=== PATIENT | female | born 1955 | race Caucasian/White ===

== ENCOUNTER 2016-06-16 21:52 | Inpatient (IN) ==
[2016-06-16 23:11] LABS: Hematocrit 33.8 % (35.3-44.9); Hemoglobin 11.6 g/dL (11.5-15.4); Lymphocytes # 0.3 K/mcL (0.6-4.6); Mean Corpuscular HGB Conc 34.3 g/dL (31.6-35.5); Mean Corpuscular Volume 84.5 fL (83.0-100.0); Mean Platelet Volume 9.6 fL (9.4-12.4); Platelet Count 198 K/mcL (140-400); Red Cell Distribution Width 13.2 % (11.5-14.5)
[2016-06-16 23:16] LABS: INR 1.3; Prothrombin Time 13.7 Seconds (9.4-12.1)
[2016-06-16 23:19] LABS: Activated Partial Thrombo Time 28.8 Seconds (26.0-36.0)
[2016-06-16 23:28] LABS: Albumin 2.5 g/dL (3.5-5.0); Albumin/Globulin Ratio 0.6 (1.1-2.2); Bilirubin,Direct 0.7 mg/dL (0.0-0.5); Bilirubin,Indirect 0.5 mg/dL (0.0-1.2); Bilirubin,Total 1.2 mg/dL (0.2-1.2); Calcium 9.3 mg/dL (8.6-10.8); Globulin 4.4 g/dL (2.4-3.5); Potassium 3.9 mEq/L (3.5-4.5); Total Protein 6.9 g/dL (6.0-8.3)
[2016-06-16] MEDS: 0.9 % Sodium Chloride 1,000 ML IVC ONE (23:40)
[2016-06-16 23:48] LABS: Monocytes # 0.3 K/mcL (0.0-1.3); Neutrophils # 9.7 K/mcL (1.6-8.9)
[2016-06-16 23:49] LABS: Platelet Clumps Few (Not Present); Platelet Estimate Normal (Normal); Toxic Granulation Present (Not Present)
[2016-06-16 23:52] LABS: Bilirubin,Urine Negative (Negative); Blood,Urine Large (Negative); Clarity,Urine Turbid (Clear); Color,Urine Yellow (Yellow); Glucose,Urine (UA) 500 mg/dL (Normal); Ketones,Urine Trace mg/dL (Negative); Leukocyte Esterase,Urine Large (Negative); Nitrite,Urine Negative (Negative); PH,Urine 5.5 pH Units (5.0-8.0); Protein,Urine 100 mg/dL (Neg-Trace); Urobilinogen,Urine Normal (Normal)
[2016-06-16 23:53] LABS: Bacteria,Urine Many per hpf (None-Few); Hyaline Casts,Urine None Seen per lpf (None-Few); RBC,Urine 0-3 per hpf (0-3); Squamous Epithelial Cell,Urine Many per lpf (None-Few); WBC,Urine TNTC per hpf (0-3)
[2016-06-17 00:01] LABS: Amorphous Sediment,Urine Moderate (Few)
[2016-06-17 00:17] LABS: ABG Base Excess -3.7 mEq/L (-2.0 to 3.0); ABG HCO3 18.9 mEQ/L (21-27); ABG Oxygen Saturation 97 % (95-98); ABG PCO2 26 mmHg (35-45); ABG PH 7.47 pH Units (7.32-7.45); ABG PO2 88 mmHg (85-104); ABG TCO2 19.7 mEq/L (20-26)
[2016-06-17 00:19] LABS: Blood Gas FiO2 28 %
[2016-06-17] MEDS ORDERED: 0.9 % Sodium Chloride 500 ML IVC ONE (00:20)
[2016-06-17] MEDS ORDERED: Acetaminophen 650 MG RECTAL SUPP RC ONE (00:21)
--- NOTE | 2016-06-17 00:23 | Emergency Department Note ---
Disposition Clinical Impression: Urinary tract infection Disposition: Admitted As Inpatient Referrals: Bharti Jenkins MD [Primary Care Provider] - Forms: ED Satisfaction Letter Altered Mental Status HPI - General Chief Complaint: ED Altered Mental Status Stated Complaint: disoriented,can't walk vomiting Time Seen by Provider: 06/16/16 22:40 Source: family Limitations: no limitations Nursing Notes Reviewed: Yes Vital Signs Reviewed: Yes - History of Present Illness HPI Narrative: Patient presents verge problem with altered mental status. Per report of came home from work and found in the bathtub. He states she has been laying around for 2 days. States that he was gone to work came home she was in the bathtub. He states it was approximately in there for 4 hours. He states that she has been acting abnormal and different from her normal self. There is no report of shortness of breath no reported chest pain. Has been report of subjective fever at home. History of present illness is limited due to patient' s mental status. - Related Data Home Medications Medication Instructions Recorded Confirmed Anastrozole [Arimidex] 1 mg PO DAILY 06/17/16 06/17/16 GlyBURIDE [GlyBURIDE] 5 mg PO BID 06/17/16 06/17/16 Insulin Glargine,Hum.rec.anlog unit SQ 06/17/16 [Lantus Solostar] Levothyroxine [Synthroid] 25 mcg PO DAILY 06/17/16 06/17/16 Lisinopril [Zestril] 10 mg PO DAILY 06/17/16 06/17/16 Metformin HCl [Glucophage] 1,000 mg PO BID 06/17/16 06/17/16 Simvastatin [Zocor] 20 mg PO HS 06/17/16 06/17/16 Spironolactone [Aldactone] 25 mg PO DAILY 06/17/16 06/17/16 Venlafaxine HCl [Venlafaxine HCl 37.5 mg PO 06/17/16 ER] Victoza 2-Jacinto 06/17/16 Allergies Allergy/AdvReac Type Severity Reaction Status Date / Time No Known Allergies Allergy Verified 06/16/16 22:01 Limitations: ROS unobtainable due to patients medical condition Past Medical History - Past Medical History Source: obtained from family Medical history: Reports: diabetes, hyperlipidemia, hypertension, thyroid disease, other - Social History Smoking Status: Never smoker Alcohol use: Reports: none Drug use: Reports: none Physical Exam - General Limitations: altered mental status General appearance: lethargic - Head Head exam: atraumatic, normocephalic, normal inspection - Eye Eye exam: Present: normal appearance, PERRL, EOMI - ENT ENT exam: normal exam, normal oropharynx, mucous membranes moist - Neck Neck exam: Present: normal inspection, full ROM, trachea midline - Chest Chest inspection: Present: normal inspection, symmetric chest wall rise - Respiratory Respiratory exam: Present: normal lung sounds bilaterally - Cardiovascular Cardiovascular exam: Present: tachycardia - Abdominal Exam Abdominal exam: Present: soft, Non-Tender. Absent: tenderness, distention, guarding, rebound, rigidity - Extremities Exam Extremities exam: Present: normal inspection, full ROM. Absent: tenderness, pedal edema - Back Exam Back exam: Present: normal inspection, full ROM. Absent: tenderness - Neurological Exam Neurological exam: Present: alert, oriented X3 - Psychiatric Psychiatric exam: Present: normal affect, normal mood - Skin Skin exam: Present: warm, dry, intact, normal color Course Vital Signs Temperature 99.5 F 06/16/16 21:54 Pulse Rate 143 06/16/16 21:54 Respiratory Rate 36 06/16/16 21:54 Blood Pressure 125/68 06/16/16 21:54 O2 Sat by Pulse Oximetry 93 06/16/16 21:54 Temperature 102 F H 06/17/16 00:21 Pulse Rate 138 06/17/16 00:11 Respiratory Rate 34 06/17/16 00:11 Blood Pressure 103/81 06/17/16 00:11 O2 Sat by Pulse Oximetry 98 06/17/16 00:11 Oxygen Delivery Oxygen Delivery Nasal Cannula Altered Mental Status - [facility] Narrative Medical decision making narrative: Patient received IV fluids which improved her mental status. Patient was given a dose of Rocephin the contaminated urine and will be admitted to the hospitalist service for further care and workup. - Differential Diagnosis Likely: alcoholic intoxication, altered mental status, dementia, hypoglycemia, hyponatremia, sepsis - Lab Data Result diagrams: 06/16/16 22:56 06/16/16 22:56 Lab Results 06/16/16 06/16/16 06/16/16 Range/Units 22:10 22:56 22:56 WBC 10.3 (4.3-11.1) K/mcL RBC 4.00 (3.82-4.97) M/mcL Hgb 11.6 (11.5-15.4) g/dL Hct 33.8 L (35.3-44.9) % MCV 84.5 (83.0-100.0) fL MCH 29.0 (28.0-33.3) pg MCHC 34.3 (31.6-35.5) g/dL RDW 13.2 (11.5-14.5) % Plt Count 198 (140-400) K/mcL MPV 9.6 (9.4-12.4) fL Seg Neutrophils % 83.0 % Band Neutrophils % 11.0 H (0-4) % Lymphocytes % 3.0 % Monocytes % 3.0 % Neutrophils # 9.7 H (1.6-8.9) K/mcL Lymphocytes # 0.3 L (0.6-4.6) K/mcL Monocytes # 0.3 (0.0-1.3) K/mcL Toxic Granulation Present A (Not Present) Platelet Estimate Normal (Normal) Clumped Platelets Few A (Not Present) PT 13.7 H (9.4-12.1) Seconds INR 1.3 APTT 28.8 (26.0-36.0) Seconds ABG pH (7.32-7.45) pH Units ABG pCO2 (35-45) mmHg ABG pO2 (85-104) mmHg ABG HCO3 (21-27) mEQ/L ABG Total CO2 (20-26) mEq/L ABG O2 Saturation (95-98) % ABG Base Excess (-2.0 to 3.0) mEq/L Blood Gas Modality Inspired O2 % Sodium (136-145) mEq/L Potassium (3.5-4.5) mEq/L Chloride (98-109) mEq/L Carbon Dioxide (19-29) mEq/L BUN (7-20) mg/dL Creatinine (0.57-1.11) mg/dL Est GFR ( Amer) (> 60) Est GFR (Non-Af Amer) (> 60) BUN/Creatinine Ratio (6-26) Glucose (70-99) mg/dL POC Glucose 385 H (58-89) Calculated Osmolality (280-300) Lactic Acid (0.5-2.2) mmol/L Calcium (8.6-10.8) mg/dL Total Bilirubin (0.2-1.2) mg/dL Direct Bilirubin (0.0-0.5) mg/dL Indirect Bilirubin (0.0-1.2) mg/dL AST (5-34) Units/L ALT (0-55) Units/L Alkaline Phosphatase (38-126) Units/L Troponin I (0-0.03) ng/mL B-Natriuretic Peptide (0-100) pg/mL Serum Total Protein (6.0-8.3) g/dL Albumin (3.5-5.0) g/dL Globulin (2.4-3.5) g/dL Albumin/Globulin Ratio (1.1-2.2) TSH (0.350-4.840) mcIU/mL Urine Color (Yellow) Urine Clarity (Clear) Urine pH (5.0-8.0) pH Units Ur Specific [place] (1.010-1.025) Urine Protein (Neg-Trace) mg/dL Urine Glucose (UA) (Normal) mg/dL Urine Ketones (Negative) mg/dL Urine Blood (Negative) Urine Nitrite (Negative) Urine Bilirubin (Negative) Urine Urobilinogen (Normal) mg/dL Ur Leukocyte Esterase (Negative) Urine Microscopic RBC (0-3) per hpf Urine Microscopic WBC (0-3) per hpf Ur Squamous Epith Cells (None-Few) per lpf Amorphous Sediment (Few) Urine Bacteria (None-Few) per hpf Hyaline Casts (None-Few) per lpf Urine Yeast 06/16/16 06/16/16 06/16/16 Range/Units 22:56 22:56 22:56 WBC (4.3-11.1) K/mcL RBC (3.82-4.97) M/mcL Hgb (11.5-15.4) g/dL Hct (35.3-44.9) % MCV (83.0-100.0) fL MCH (28.0-33.3) pg MCHC (31.6-35.5) g/dL RDW (11.5-14.5) % Plt Count (140-400) K/mcL MPV (9.4-12.4) fL Seg Neutrophils % % Band Neutrophils % (0-4) % Lymphocytes % % Monocytes % % Neutrophils # (1.6-8.9) K/mcL Lymphocytes # (0.6-4.6) K/mcL Monocytes # (0.0-1.3) K/mcL Toxic Granulation (Not Present) Platelet Estimate (Normal) Clumped Platelets (Not Present) PT (9.4-12.1) Seconds INR APTT (26.0-36.0) Seconds ABG pH (7.32-7.45) pH Units ABG pCO2 (35-45) mmHg ABG pO2 (85-104) mmHg ABG HCO3 (21-27) mEQ/L ABG Total CO2 (20-26) mEq/L ABG O2 Saturation (95-98) % ABG Base Excess (-2.0 to 3.0) mEq/L Blood Gas Modality Inspired O2 % Sodium 127 L (136-145) mEq/L Potassium 3.9 (3.5-4.5) mEq/L Chloride 92 L (98-109) mEq/L Carbon Dioxide 17 L (19-29) mEq/L BUN 49 H (7-20) mg/dL Creatinine 2.88 H (0.57-1.11) mg/dL Est GFR ( Amer) 20 L (> 60) Est GFR (Non-Af Amer) 17 L (> 60) BUN/Creatinine Ratio 17 (6-26) Glucose 401 H (70-99) mg/dL POC Glucose (58-89) Calculated Osmolality 294 (280-300) Lactic Acid (0.5-2.2) mmol/L Calcium 9.3 (8.6-10.8) mg/dL Total Bilirubin 1.2 (0.2-1.2) mg/dL Direct Bilirubin 0.7 H (0.0-0.5) mg/dL Indirect Bilirubin 0.5 (0.0-1.2) mg/dL AST 25 (5-34) Units/L ALT 29 (0-55) Units/L Alkaline Phosphatase 259 H (38-126) Units/L Troponin I 0.04 H* (0-0.03) ng/mL B-Natriuretic Peptide 973 H (0-100) pg/mL Serum Total Protein 6.9 (6.0-8.3) g/dL Albumin 2.5 L (3.5-5.0) g/dL Globulin 4.4 H (2.4-3.5) g/dL Albumin/Globulin Ratio 0.6 L (1.1-2.2) TSH (0.350-4.840) mcIU/mL Urine Color (Yellow) Urine Clarity (Clear) Urine pH (5.0-8.0) pH Units Ur Specific [place] (1.010-1.025) Urine Protein (Neg-Trace) mg/dL Urine Glucose (UA) (Normal) mg/dL Urine Ketones (Negative) mg/dL Urine Blood (Negative) Urine Nitrite (Negative) Urine Bilirubin (Negative) Urine Urobilinogen (Normal) mg/dL Ur Leukocyte Esterase (Negative) Urine Microscopic RBC (0-3) per hpf Urine Microscopic WBC (0-3) per hpf Ur Squamous Epith Cells (None-Few) per lpf Amorphous Sediment (Few) Urine Bacteria (None-Few) per hpf Hyaline Casts (None-Few) per lpf Urine Yeast 06/16/16 06/16/16 06/16/16 Range/Units 22:56 22:56 23:43 WBC (4.3-11.1) K/mcL RBC (3.82-4.97) M/mcL Hgb (11.5-15.4) g/dL Hct (35.3-44.9) % MCV (83.0-100.0) fL MCH (28.0-33.3) pg MCHC (31.6-35.5) g/dL RDW (11.5-14.5) % Plt Count (140-400) K/mcL MPV (9.4-12.4) fL Seg Neutrophils % % Band Neutrophils % (0-4) % Lymphocytes % % Monocytes % % Neutrophils # (1.6-8.9) K/mcL Lymphocytes # (0.6-4.6) K/mcL Monocytes # (0.0-1.3) K/mcL Toxic Granulation (Not Present) Platelet Estimate (Normal) Clumped Platelets (Not Present) PT (9.4-12.1) Seconds INR APTT (26.0-36.0) Seconds ABG pH (7.32-7.45) pH Units ABG pCO2 (35-45) mmHg ABG pO2 (85-104) mmHg ABG HCO3 (21-27) mEQ/L ABG Total CO2 (20-26) mEq/L ABG O2 Saturation (95-98) % ABG Base Excess (-2.0 to 3.0) mEq/L Blood Gas Modality Inspired O2 % Sodium (136-145) mEq/L Potassium (3.5-4.5) mEq/L Chloride (98-109) mEq/L Carbon Dioxide (19-29) mEq/L BUN (7-20) mg/dL Creatinine (0.57-1.11) mg/dL Est GFR ( Amer) (> 60) Est GFR (Non-Af Amer) (> 60) BUN/Creatinine Ratio (6-26) Glucose (70-99) mg/dL POC Glucose (58-89) Calculated Osmolality (280-300) Lactic Acid 4.3 H* (0.5-2.2) mmol/L Calcium (8.6-10.8) mg/dL Total Bilirubin (0.2-1.2) mg/dL Direct Bilirubin (0.0-0.5) mg/dL Indirect Bilirubin (0.0-1.2) mg/dL AST (5-34) Units/L ALT (0-55) Units/L Alkaline Phosphatase (38-126) Units/L Troponin I (0-0.03) ng/mL B-Natriuretic Peptide (0-100) pg/mL Serum Total Protein (6.0-8.3) g/dL Albumin (3.5-5.0) g/dL Globulin (2.4-3.5) g/dL Albumin/Globulin Ratio (1.1-2.2) TSH 1.615 (0.350-4.840) mcIU/mL Urine Color Yellow (Yellow) Urine Clarity Turbid A (Clear) Urine pH 5.5 (5.0-8.0) pH Units Ur Specific [place] 1.020 (1.010-1.025) Urine Protein 100 H (Neg-Trace) mg/dL Urine Glucose (UA) 500 H (Normal) mg/dL Urine Ketones Trace H (Negative) mg/dL Urine Blood Large H (Negative) Urine Nitrite Negative (Negative) Urine Bilirubin Negative (Negative) Urine Urobilinogen Normal (Normal) mg/dL Ur Leukocyte Esterase Large H (Negative) Urine Microscopic RBC 0-3 (0-3) per hpf Urine Microscopic WBC TNTC H (0-3) per hpf Ur Squamous Epith Cells Many H (None-Few) per lpf Amorphous Sediment Moderate H (Few) Urine Bacteria Many H (None-Few) per hpf Hyaline Casts None Seen (None-Few) per lpf Urine Yeast Test Not Performed 06/17/16 Range/Units 00:08 WBC (4.3-11.1) K/mcL RBC (3.82-4.97) M/mcL Hgb (11.5-15.4) g/dL Hct (35.3-44.9) % MCV (83.0-100.0) fL MCH (28.0-33.3) pg MCHC (31.6-35.5) g/dL RDW (11.5-14.5) % Plt Count (140-400) K/mcL MPV (9.4-12.4) fL Seg Neutrophils % % Band Neutrophils % (0-4) % Lymphocytes % % Monocytes % % Neutrophils # (1.6-8.9) K/mcL Lymphocytes # (0.6-4.6) K/mcL Monocytes # (0.0-1.3) K/mcL Toxic Granulation (Not Present) Platelet Estimate (Normal) Clumped Platelets (Not Present) PT (9.4-12.1) Seconds INR APTT (26.0-36.0) Seconds ABG pH 7.47 H (7.32-7.45) pH Units ABG pCO2 26 L (35-45) mmHg ABG pO2 88 (85-104) mmHg ABG HCO3 18.9 L (21-27) mEQ/L ABG Total CO2 19.7 L (20-26) mEq/L ABG O2 Saturation 97 (95-98) % ABG Base Excess -3.7 L (-2.0 to 3.0) mEq/L Blood Gas Modality [place] Inspired O2 28 % Sodium (136-145) mEq/L Potassium (3.5-4.5) mEq/L Chloride (98-109) mEq/L Carbon Dioxide (19-29) mEq/L BUN (7-20) mg/dL Creatinine (0.57-1.11) mg/dL Est GFR ( Amer) (> 60) Est GFR (Non-Af Amer) (> 60) BUN/Creatinine Ratio (6-26) Glucose (70-99) mg/dL POC Glucose (58-89) Calculated Osmolality (280-300) Lactic Acid (0.5-2.2) mmol/L Calcium (8.6-10.8) mg/dL Total Bilirubin (0.2-1.2) mg/dL Direct Bilirubin (0.0-0.5) mg/dL Indirect Bilirubin (0.0-1.2) mg/dL AST (5-34) Units/L ALT (0-55) Units/L Alkaline Phosphatase (38-126) Units/L Troponin I (0-0.03) ng/mL B-Natriuretic Peptide (0-100) pg/mL Serum Total Protein (6.0-8.3) g/dL Albumin (3.5-5.0) g/dL Globulin (2.4-3.5) g/dL Albumin/Globulin Ratio (1.1-2.2) TSH (0.350-4.840) mcIU/mL Urine Color (Yellow) Urine Clarity (Clear) Urine pH (5.0-8.0) pH Units Ur Specific [place] (1.010-1.025) Urine Protein (Neg-Trace) mg/dL Urine Glucose (UA) (Normal) mg/dL Urine Ketones (Negative) mg/dL Urine Blood (Negative) Urine Nitrite (Negative) Urine Bilirubin (Negative) Urine Urobilinogen (Normal) mg/dL Ur Leukocyte Esterase (Negative) Urine Microscopic RBC (0-3) per hpf Urine Microscopic WBC (0-3) per hpf Ur Squamous Epith Cells (None-Few) per lpf Amorphous Sediment (Few) Urine Bacteria (None-Few) per hpf Hyaline Casts (None-Few) per lpf Urine Yeast - Radiology Data Radiology results reviewed: Yes I reviewed the patient's radiology results. Chest X-Ray 06/16/16 22:04 IMPRESSION: Cardiomegaly with early interstitial edema D/ / Emile Ross MD / Emile Ross MD Interpreting Provider: Emile Ross MD Head CT 06/16/16 22:46 IMPRESSION: Motion limited. No hemorrhage or mass. Trace fluid in the sphenoid D/ / Emile Malone MD / Emile Malone MD Interpreting Provider: Emile Malone MD - EKG Data EKG attestation: Yes I reviewed and interpreted this EKG. EKG shows normal: sinus rhythm Rate: tachycardia Rhythm: NSR TPA Checklist - LKW: 3-4.5 hrs Add. Contraindications Patient/family understanding: The patient/family members have been counseled and understood the risk, benefit , and alternatives of treatment. Critical Care Time Total Critical Care Time: 75 Attestation: Critical care performed: Time is exclusive of separately billable procedures. Time includes: direct patient care, patient reassessment, coordination of patient care, interpretation of data (laboratory data, radiology data, and respiratory data), review of patient's medical records, medical consultation and documentation of patient care. Procedures included in critical care time: Procedures excluded from critical care time:
[2016-06-17 01:11] LABS: Beta-Hydroxybutyric Acid 1.24 mmol/L (0.02-0.27)
[2016-06-17] MEDS ORDERED: 0.9 % Sodium Chloride 1,000 ML ONE ×4 (02:00→08:33)
[2016-06-17] MEDS ORDERED: Magnesium Sulfate 2 GM in D5% in Water 100 ML IVPB ONE ×2 (02:02→07:14)
[2016-06-17] MEDS ORDERED: 0.9 % Sodium Chloride 1,000 ML IVC ONE (02:02)
[2016-06-17] MEDS ORDERED: Naloxone 0.4 MG/ML INJ IVP PRN (02:11)
[2016-06-17] MEDS ORDERED: Acetaminophen 325 MG TABLET PO PRN (02:11)
[2016-06-17] MEDS ORDERED: *HR* Dextrose 50 % in Water (Syg) 50 ML SYRINGE IVP PRN (02:16)
[2016-06-17] MEDS ORDERED: D5% in Water 1,000 ML IVC PRN (02:16)
[2016-06-17] MEDS ORDERED: Dextrose Gel 15 GM PO PRN ×2 (02:16)
--- NOTE | 2016-06-17 02:22 | Internal Med History&Physical ---
Date of Encounter: 06/17/16 Time of Encounter: 02:04 Assessment and Plan (1) Severe sepsis Current visit: Yes Status: Acute patient comes in with signs and symptoms concerning for infectious process and found to meet SIRS criteria with a urinary source, she additionally has end organ damage-TISH and encephalopathy, she had lactate>4 we will employ the sepsis protocol with panculture, empiric IV Abx, IVF boluses to maintain MAP>65mmHg we will telemonitor will follow cultures and deescalate once culture and sensitivities are known, we will admit to a monitored bed (2) Acute encephalopathy Current visit: Yes Status: Acute patient comes in confused, in the setting of sepsis, we will admit for neuro checks whilst treating the underlying etiology, non contrast head CT was unremarkable (3) TISH (acute kidney injury) Current visit: Yes Status: Acute this is related to he sepsis, we will avoid nephrotoXins, give IVF, renally dose all medications and follow BMP (4) Hyponatremia Current visit: Yes Status: Acute from extreme dehydration from GI loss and poor oral intake, we will hydrate and follow BMP (5) Non-sustained ventricular tachycardia Current visit: Yes Status: Acute 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, this is related to electrolyte imbalance, at admission her magnesium was not checked, we will empirically replace and follow electrolytes, will continue telemonitoring (6) Urinary tract infection Current visit: Yes Status: Acute she has no LUTS but her urine is suggestive alongside systemic symptoms, we will manage per severe sepsis section Qualifiers: Urinary tract infection type: site unspecified Hematuria presence: with hematuria Qualified Code(s): N39.0 - Urinary tract infection, site not specified; R31.9 - Hematuria, unspecified (7) Hyperglycemia due to type 2 diabetes mellitus Current visit: Yes Status: Acute history of type 2 DM on oral hypoglycemics and sliding scale insulin at home, we will do basal bolus insulin regimen, we will hold her glyburide and metformin in the setting of TISH Qualifiers: 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 Lomax is a 61 year old female with a history of Type 2 DM was brought here to the ER of [place] for confusion. Per who provided the history, patient was well until 3 days prior to presentation when she began to have nausea and vomiting. She had several episodes since onset, the vomitus is greenish most of the time but sometimes contains food previously ingested. She has been unable to keep any food down. Over the course of the last 2 days she has been increasingly fatigued with generalized weakness. On the day of presentation she was not making sense to her during conversations. He left for work in the morning and came back to see her still lying in the bathtub. That was when he called [facility] and she was brought here. In the ER she was found to have UTI and met criteria for severe sepsis alongside significant electrolytes derangements. She reports palpitations and fever. Past Med Surg Social Fam HX - Past Medical History Medical history: diabetes, hyperlipidemia, hypertension, thyroid disease, other - Past Surgical History Surgical History: no surgical history - Social History Smoking Status: Never smoker Alcohol use: none Drug use: none Current living situation: Home - Independent, With Family Activity Level: Independent ambulation - Additional Family History Additional family history: both parents are , they had Type 2 DM Internal Medicine - H&P: Meds Anastrozole [Arimidex] 1 mg PO DAILY 06/17/16 [History] GlyBURIDE [GlyBURIDE] 5 mg PO BID 06/17/16 [History] Insulin Glargine,Hum.rec.anlog [Lantus Solostar] unit SQ 06/17/16 [History] Levothyroxine [Synthroid] 25 mcg PO DAILY 06/17/16 [History] Lisinopril [Zestril] 10 mg PO DAILY 06/17/16 [History] Metformin HCl [Glucophage] 1,000 mg PO BID 06/17/16 [History] Simvastatin [Zocor] 20 mg PO HS 06/17/16 [History] Spironolactone [Aldactone] 25 mg PO DAILY 06/17/16 [History] Venlafaxine HCl [Venlafaxine HCl ER] 37.5 mg PO 06/17/16 [History] Victoza 2-Jacinto 06/17/16 [History] Allergies No Known Allergies Allergy (Verified 06/16/16 22:01) All Systems PM: A 10-system review of systems was performed and is negative for pertinent findings except as documented above in the HPI. - Constitutional Vitals: Temp Pulse Resp BP Pulse Ox 102 F H 138 28 102/58 98 06/17/16 01:31 06/17/16 00:11 06/17/16 01:31 06/17/16 01:31 06/17/16 00:11 - General General appearance: Adult female, lying in bed, lethargic, able to follow commands, asking for water - Head Head exam: atraumatic, normocephalic, normal inspection - Eye Eye exam: Present: normal appearance, PERRL, EOMI - ENT ENT exam: poor dentition normal oropharynx, mucous membranes dry - Neck Neck exam: Present: normal inspection, full ROM, trachea midline - Respiratory Respiratory exam: normal lung sounds bilaterally, good AE, no crackles or wheeze - Cardiovascular Cardiovascular exam: tachycardic heart sounds, no murmurs, no ankle edema noted - Abdominal Exam Abdominal exam: Present: soft, Non-Tender. Absent: tenderness, distention, guarding, rebound, rigidity - Extremities Exam Extremities exam: Present: normal inspection, full ROM. Absent: tenderness, pedal edema - Back Exam Back exam: Present: normal inspection, full ROM. Absent: tenderness - Neurological Exam Neurological exam: Present: alert, oriented X2, grossly non focal motor and sensory exam - Psychiatric Psychiatric exam: Present: normal affect, normal mood - Skin Skin exam: warm, dry, intact, no rash or ulcers noted Internal Med - H&P Results - Labs CBC & Chem 7: 06/16/16 22:56 06/16/16 22:56 - Diagnostic Studies Chest x-ray Status: image reviewed by me CT scan - head Status: image reviewed by me
[2016-06-17] MEDS ORDERED: Insulin LISPRO 300 UNITS/3 ML VIAL SQ SCH ×2 (02:30)
[2016-06-17] MEDS ORDERED: methylPREDNISolone 125 MG/2 ML VIAL ONE (06:07)
[2016-06-17] MEDS ORDERED: Albuterol 2.5 MG/3 ML NEBULIZER IH PRN (06:08)
[2016-06-17] MEDS ORDERED: methylPREDNISolone 125 MG/2 ML VIAL IVP ONE (06:08)
--- NOTE | 2016-06-17 06:10 | Event Note ---
Date of Encounter: 06/17/16 Time of Encounter: 05:55 Patient admitted for severe sepsis with other multiple life threatening conditions was a rapid response this morning for respiratory distress. Upon limited exam pt had increased respirations in the 40's-50's. Had increased work of breathing with the use of accessory muscles of respiration, she was also wheezing but had no crackles. She was also tachycardic in the 150's and feverish in the 101's. We will manage her imminent respiratory failure with NIMV for now, will do bre and PRN nebs, will also give solumedrol, morphine for air hunger and anxiety, will check ABG. Low threshold for intubation and transfer to the ICU.
[2016-06-17] MEDS ORDERED: Acetaminophen 650 MG RECTAL SUPP RC PRN (06:12)
[2016-06-17] MEDS ORDERED: Levalbuterol Neb 1.25 MG/3 ML IH SCH (06:15)
[2016-06-17] MEDS: 0.9 % Sodium Chloride 1,000 ML IVC ONE (06:22)
[2016-06-17] MEDS ORDERED: *HR* Morphine 2 MG/ML SYRINGE ONE ×3 (06:25→07:18)
[2016-06-17 06:32] LABS: Mean Corpuscular HGB Conc 32.4 g/dL (31.6-35.5); Mean Corpuscular Hemoglobin 28.4 pg (28.0-33.3); Mean Corpuscular Volume 87.9 fL (83.0-100.0); Mean Platelet Volume 9.5 fL (9.4-12.4); Platelet Count 134 K/mcL (140-400); Red Blood Count 3.87 M/mcL (3.82-4.97); Red Cell Distribution Width 13.3 % (11.5-14.5)
[2016-06-17] MEDS ORDERED: *HR* Morphine 2 MG/ML SYRINGE IV ONE ×2 (06:33→07:16)
[2016-06-17 06:41] LABS: ABG Oxygen Saturation 98 % (95-98); ABG PCO2 26 mmHg (35-45); ABG PH 7.37 pH Units (7.32-7.45); ABG PO2 112 mmHg (85-104); ABG TCO2 15.8 mEq/L (20-26); Blood Gas FiO2 35 %
[2016-06-17 06:49] LABS: Calcium 8.2 mg/dL (8.6-10.8); Magnesium 1.6 mg/dL (1.6-2.6); Phosphorous 2.7 mg/dL (2.3-4.7)
[2016-06-17] MEDS: *HR* Morphine 2 MG/ML SYRINGE IV STA (06:51)
[2016-06-17] MEDS: 0.9 % Sodium Chloride 1,000 ML IVC SCH ×2 (07:54→10:14)
[2016-06-17] MEDS: Ipratropium Neb 0.5 MG NEBULIZER IH SCH ×4 (07:55→19:58)
[2016-06-17] MEDS ORDERED: Albuterol 2.5 MG/3 ML NEBULIZER IH SCH (08:00)
[2016-06-17] MEDS ORDERED: Vancomycin 1,750 MG in D5% in Water 500 ML IVPB ONE (08:00)
[2016-06-17] MEDS ORDERED: Vancomycin 1 EACH in D5% in Water 250 ML IVPB PRN (08:00)
[2016-06-17 08:03] LABS: Lymphocytes # 1.1 K/mcL (0.6-4.6); Monocytes # 0.4 K/mcL (0.0-1.3); Neutrophils # 4.4 K/mcL (1.6-8.9); Platelet Estimate Slight Decrease (Normal)
[2016-06-17 08:27] LABS: Acinetobacter baumannii by PCR Not Detected (Not Detect); Candida albicans by PCR Not Detected (Not Detect); Candida glabrata by PCR Not Detected (Not Detect); Candida krusei by PCR Not Detected (Not Detect); Candida parapsilosis by PCR Not Detected (Not Detect); Candida tropicalis by PCR Not Detected (Not Detect); Enterococcus by PCR Not Detected (Not Detect); Escherichia coli by PCR ***DETECTED*** (Not Detect); Klebsiella oxytoca by PCR Not Detected (Not Detect); Klebsiella pneumoniae by PCR Not Detected (Not Detect); Pseudomonas aeruginosa by PCR Not Detected (Not Detect); Serratia marcescens by PCR Not Detected (Not Detect); Staphylococcus aureus by PCR Not Detected (Not Detect); Streptococcus agalactiae(B)PCR Not Detected (Not Detect); Streptococcus by PCR Not Detected (Not Detect); Streptococcus pneumoniae PCR Not Detected (Not Detect); Streptococcus pyogenes (A) PCR Not Detected (Not Detect); blaKPC Carbapenem-Resist Gene Not Detected (Not Detect)
[2016-06-17] MEDS ORDERED: Sodium Bicarbonate 100 MEQ in 0.45 % Sodium Chloride 1,000 ML IVC SCH (08:45)
[2016-06-17] MEDS ORDERED: Amiodarone 150 MG in D5% in Water 100 ML IVPB ONE (09:32)
--- NOTE | 2016-06-17 09:46 | Pulmonology Consult Note ---
Date of Encounter: 06/17/16 Time of Encounter: 09:44 Assessment and Plan (1) Severe sepsis Current Visit: Yes Status: Acute Meets criteria with hypotension, end organ damage of TISH and acute encephalopathy. Tachycardia and tachypnea as well. Lactic acid 4.3>3.8 5L fluid given Blood cultures demonstrate bacteremia with E. Coli and Enterobacteriac. Continue Zosyn Day #1 Plan to deescalate pending cultures. Vancomycin has been discontinued. (2) Bacteremia due to Gram-negative bacteria Current Visit: Yes Status: Acute On Zosyn (3) Acute encephalopathy Current Visit: Yes Status: Acute Secondary to severe sepsis. (4) Atrial fibrillation with RVR Current Visit: Yes Status: Acute Currently on Amiodarone protocol. Rate continues to be elevated from 140-160 at this time. Blood pressures stable. No longer having runs of wide complex tachycardia. Continue to monitor closely. EKG ordered. Echocardiogram ordered. (5) Diabetes Current Visit: Yes Status: Acute On diabetic diet. Moderate dose SSI. Qualifiers: Diabetes mellitus type: type 2 Diabetes mellitus complication status: without complication Diabetes mellitus intermediate insulin use: without meterman use Qualified Code(s): E11.9 - Type 2 diabetes mellitus without complications (6) TISH (acute kidney injury) Current Visit: Yes Status: Acute 2.88>2.4 Likely hemodynamically mediated secondary to severe sepsis. Improving, continue to monitor. (7) Hyponatremia Current Visit: Yes Status: Acute 127>132 Additional saline has been given since last lab draw, continue to monitor. (8) Urinary tract infection Current Visit: Yes Status: Acute On Zosyn. Urine culture pending. Qualifiers: Urinary tract infection type: site unspecified Hematuria presence: with hematuria Qualified Code(s): N39.0 - Urinary tract infection, site not specified; R31.9 - Hematuria, unspecified (9) Hypothyroidism Current Visit: Yes Status: Chronic Continue home medication. Qualifiers: Hypothyroidism type: acquired Qualified Code(s): E03.9 - Hypothyroidism, unspecified (10) DVT prophylaxis Current Visit: Yes Status: Acute Heparin SQ History of Present Illness Consult date: 06/17/16 Requesting physician: Marybel Senior Reason for consult: other (severe sepsis, arrhthymia, acute respiratory failure) Chief complaint: Confusion History of present illness: This is a 61 year old female with PMH of type 2 diabetes, hypertension, hyperlipidemia, morbid obesity who was admitted for altered mental status secondary to severe sepsis with a urinary source. Much of the history is reviewed with the who states that his started vomiting three days ago and was unable to keep anything down. There was a combination of vomiting food as well as greenish liquid. She did not have any blood in her vomit. She denies having diarrhea. The states that he noticed his becoming weaker over the three day period until yesterday when she got in the tub before he left for work and she was still in the tub 8 hours later when he returned. At that point he called EMS. Upon arrival to the ER she was incoherent and unable to state her name. Shortly after admission she became tachycardic with a wide complex tachycardia and rates up to 211. She was fluid resuscitated with 5 L, given three amps of bicarb and started on a bicarb drip for severe sepsis with acidosis. He lactic acid was 5.2. She responded to fluids and was transferred to the ICU on vancomycin and zosyn. She had two separate positive blood cultures reported for two gram negative organisms. Currently she is on BiPAP and continues to have runs of wide complex tachycardia with rates into the 190s. She is able to respond to commands appropriately and is asking for a break from the BiPAP as well as a drink of water. She denies any previous cardiac history. The states that she typically has a high heart rate at home in the 130s. Past Med Surg Social Fam HX - Past Medical History Medical history: diabetes, hyperlipidemia, hypertension, thyroid disease, other - Past Surgical History Surgical History: no surgical history - Social History Smoking Status: Never smoker Alcohol use: none Drug use: none - Family History Mother Hx Family Cardiac Disorders: Yes Hx Family Endocrine Disorder: Yes (diabetes) Father Hx Family Endocrine Disorder: Yes (diabetes) Sister Hx Family Endocrine Disorder: Yes (diabetes) Medications and Allergies Anastrozole [Arimidex] 1 mg PO DAILY 06/17/16 [History] GlyBURIDE [GlyBURIDE] 5 mg PO BID 06/17/16 [History] Insulin Glargine,Hum.rec.anlog [Lantus Solostar] 35 unit SQ QAM 06/17/16 [ History] Insulin Glargine,Hum.rec.anlog [Lantus Solostar] 40 unit SQ QPM 06/17/16 [ History] Levothyroxine [Synthroid] 25 mcg PO DAILY 06/17/16 [History] Liraglutide [Victoza 2-Jacinto] 0.6 mg SQ DAILY 06/17/16 [History] Lisinopril [Zestril] 10 mg PO DAILY 06/17/16 [History] Metformin HCl [Glucophage] 1,000 mg PO BID 06/17/16 [History] Simvastatin [Zocor] 20 mg PO HS 06/17/16 [History] Spironolactone [Aldactone] 25 mg PO DAILY 06/17/16 [History] Venlafaxine HCl [Venlafaxine HCl ER] 150 mg PO DAILY 06/17/16 [History] Allergies No Known Allergies Allergy (Verified 06/16/16 22:01) All Systems: A 10-system review of systems was performed and is negative for pertinent findings except as documented above in the HPI. - EENT Nose, mouth and throat: dry mouth - Cardiovascular Cardiovascular: palpitations - Respiratory Respiratory: dyspnea - Gastrointestinal Gastrointestinal: nausea, vomiting - Genitourinary Genitourinary: no dysuria, no flank pain, no urinary frequency, no urinary incontinence - Neurological Neurological: confusion Physical Examination Vital Signs: Vital Signs, Last 4 Hours Temp Pulse Resp BP Pulse Ox 06/17/16 09:24 181 31 98/76 97 06/17/16 07:52 97.7 F 131 32 96/58 96 06/17/16 06:34 145 37 124/59 99 06/17/16 06:27 38 100 06/17/16 06:18 40 99 General appearance: appears uncomfortable, other (mild distress) Eyes: nonicteric ENT: oropharynx dry Neck: supple Effort: mildly labored, other (Tachypnea on BiPAP) Auscultation: bilateral: clear Cardiovascular: irregular rhythm (Rapid rate) Gastrointestinal: normoactive bowel sounds, soft, non-tender, other (obese) Integumentary: normal Extremities: no cyanosis Musculoskeletal: no deformities normal mental status, non-focal exam mood appropriate Results - Laboratory Findings CBC and BMP: 06/17/16 06:16 06/17/16 06:16 ABG ABG pH 7.37 pH Units (7.32-7.45) 06/17/16 06:25 ABG pCO2 26 mmHg (35-45) L 06/17/16 06:25 ABG pO2 112 mmHg (85-104) H 06/17/16 06:25 ABG O2 Saturation 98 % (95-98) 06/17/16 06:25 PT/INR, D-dimer PT 13.7 Seconds (9.4-12.1) H 06/16/16 22:56 Abnormal lab findings: Abnormal lab results Hgb 11.0 g/dL (11.5-15.4) L 06/17/16 06:16 Hct 34.0 % (35.3-44.9) L 06/17/16 06:16 Plt Count 134 K/mcL (140-400) L 06/17/16 06:16 Band Neutrophils % 10.0 % (0-4) H 06/17/16 06:16 Metamyelocytes % 4.0 % (0) H 06/17/16 06:16 Toxic Granulation Present (Not Present) A 06/16/16 22:56 Platelet Estimate Slight Decrease (Normal) L 06/17/16 06:16 Clumped Platelets Few (Not Present) A 06/16/16 22:56 PT 13.7 Seconds (9.4-12.1) H 06/16/16 22:56 ABG pCO2 26 mmHg (35-45) L 06/17/16 06:25 ABG pO2 112 mmHg (85-104) H 06/17/16 06:25 ABG HCO3 15.0 mEQ/L (21-27) L 06/17/16 06:25 ABG Total CO2 15.8 mEq/L (20-26) L 06/17/16 06:25 ABG Base Excess -9.0 mEq/L (-2.0 to 3.0) L 06/17/16 06:25 Sodium 132 mEq/L (136-145) L 06/17/16 06:16 Carbon Dioxide 14 mEq/L (19-29) L 06/17/16 06:16 BUN 46 mg/dL (7-20) H 06/17/16 06:16 Creatinine 2.40 mg/dL (0.57-1.11) H 06/17/16 06:16 Est GFR ( Amer) 25 (> 60) L 06/17/16 06:16 Est GFR (Non-Af Amer) 21 (> 60) L 06/17/16 06:16 Glucose 291 mg/dL (70-99) H 06/17/16 06:16 POC Glucose 278 (58-89) H 06/17/16 09:09 Lactic Acid 5.2 mmol/L (0.5-2.2) H* 06/17/16 06:16 Calcium 8.2 mg/dL (8.6-10.8) L 06/17/16 06:16 Direct Bilirubin 0.7 mg/dL (0.0-0.5) H 06/16/16 22:56 Alkaline Phosphatase 259 Units/L (38-126) H 06/16/16 22:56 Troponin I 0.04 ng/mL (0-0.03) H* 06/16/16 22:56 B-Natriuretic Peptide 973 pg/mL (0-100) H 06/16/16 22:56 Albumin 2.5 g/dL (3.5-5.0) L 06/16/16 22:56 Globulin 4.4 g/dL (2.4-3.5) H 06/16/16 22:56 Albumin/Globulin Ratio 0.6 (1.1-2.2) L 06/16/16 22:56 Beta-Hydroxybutyric Acd 1.24 mmol/L (0.02-0.27) H 06/17/16 01:19 Urine Clarity Turbid (Clear) A 06/16/16 23:43 Urine Protein 100 mg/dL (Neg-Trace) H 06/16/16 23:43 Urine Glucose (UA) 500 mg/dL (Normal) H 06/16/16 23:43 Urine Ketones Trace mg/dL (Negative) H 06/16/16 23:43 Urine Blood Large (Negative) H 06/16/16 23:43 Ur Leukocyte Esterase Large (Negative) H 06/16/16 23:43 Urine Microscopic WBC TNTC per hpf (0-3) H 06/16/16 23:43 Ur Squamous Epith Cells Many per lpf (None-Few) H 06/16/16 23:43 Amorphous Sediment Moderate (Few) H 06/16/16 23:43 Urine Bacteria Many per hpf (None-Few) H 06/16/16 23:43 Enterobacteriac sp PCR DETECTED (Not Detect) A 06/16/16 23:01 E. coli (PCR) DETECTED (Not Detect) A 06/16/16 23:01 Consult Discharge Plan - Plan Referrals: Bharti Jenkins MD [Primary Care Provider] - (Web requested 06-17-16) - Attending Attestation I examined this patient and my medical decision-making was reviewed with the HISTORICAL RECORDS ADMINISTRATOR/PA/Advanced Practice Nurse/Resident Physician. I agree with the documented findings, disposition and treatment plan as described except to the extent set forth below.
[2016-06-17] MEDS ORDERED: Amiodarone Premix 360 MG/200 ML BAG IVC ONE ×2 (09:53→15:49)
[2016-06-17] MEDS ORDERED: Amiodarone Premix 150 MG/100 ML BAG IVPB ONE ×2 (09:53→11:51)
--- NOTE | 2016-06-17 09:53 | Event Note ---
Date of Encounter: 06/17/16 Time of Encounter: 07:20 Patient is a 61-year-old female with medical history of type 2 diabetes, hypertension, hyperlipidemia, morbid obesity who was admitted for acute metabolic encephalopathy secondary to severe sepsis, severe sepsis secondary to urinary tract infection and gram-negative bacteremia, Non sustained Vtach, and electrolyte abnormalities. She was empirically started on IV Fluids, IV abx, and Mg was supplemented. Earlier this morning patient was noted to be hypoxic for which she was placed on NPPV. Her hypoxia resolved however she remained tachypneic with RR fluctuating between 30-40. She was also noted to remain in sinus tachycardia with HR in 130s. During my evaluation, she was found to have sustained narrow complex Vtach with hypotension. She received 1L NS fluid bolus with improvement in her BP and resolution of her Vtach. She has received 4gm of IV Mg. Noted to have AGMA in the setting of acute renal failure. Bicarb deficit was noted to be 9.7 amp. She has received 3amps of IV bicarb and is to be started on Bicarb gtt (2amp bicarb in 0.45NS run at 125cc/hr). Blood cultures positive of E.coli and is started on empiric IV abx (Vancomycin and Zosyn). Urine cultures pending. Concern for aspiration as patient has reported history of multiple episodes of vomiting with altered mentation prior to her arrival to the hospital. Noted to have hyperglycemia for which she is placed on insulin sliding scale algorithm. Given patient's labile clinical status and severe critical illness, ICU was consulted. Case was discussed with Dr. Luna. I performed critical intervention, involving high complexity decision making to assess, manipulate, and support vital organ system failure; and I spent about 1 hour engaged in work directly related to the patient's care at her immediate bedside and also on the unit. Patient is to be transferred to the ICU under the care of the haul driver.
[2016-06-17] MEDS: *HR* Heparin 5,000 UNIT/ML VIAL SQ SCH ×2 (09:57→16:04)
[2016-06-17] MEDS: Piperacillin/Tazobactam 3.375 GM in D5% in Water (Mini-Bag+) 100 ML IVPB SCH ×2 (10:13→16:05)
[2016-06-17] MEDS: Insulin LISPRO 300 UNITS/3 ML VIAL SQ SCH ×2 (10:23→16:21)
[2016-06-17] MEDS: Anastrozole 1 MG TABLET PO SCH (11:27)
[2016-06-17] MEDS: Levothyroxine 25 MCG TABLET PO SCH (11:27)
[2016-06-17] MEDS ORDERED: Insulin LISPRO 300 UNITS/3 ML VIAL SQ ONE (11:30)
[2016-06-17 11:32] LABS: Calcium 7.6 mg/dL (8.6-10.8); Magnesium 2.7 mg/dL (1.6-2.6); Phosphorous 2.2 mg/dL (2.3-4.7); Potassium 3.9 mEq/L (3.5-4.5)
[2016-06-17 11:39] LABS: Hemoglobin A1C 9.9 %
--- NOTE | 2016-06-17 11:39 | Electrocardiograph Report ---
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
[2016-06-17] MEDS: Levalbuterol Neb 1.25 MG/3 ML IH SCH ×3 (11:45→19:58)
[2016-06-17] MEDS: Amiodarone Premix 360 MG/200 ML BAG IVC SCH (17:28)
[2016-06-17] MEDS: Insulin Human Regular 100 UNIT in 0.9 % Sodium Chloride 100 ML IVC SCH ×2 (17:29→22:41)
[2016-06-17] MEDS ORDERED: Amiodarone Premix 360 MG/200 ML BAG IVC SCH (18:00)
--- NOTE | 2016-06-17 19:47 | Electrocardiograph Report ---
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
[2016-06-17] MEDS ORDERED: *HR* Metoprolol 5 MG/5 ML VIAL IVP PRN (20:02)
[2016-06-17] MEDS ORDERED: Potassium Phosphate 44 MEQ in 0.9 % Sodium Chloride 250 ML IVPB PRN (20:06)
[2016-06-17] MEDS ORDERED: Calcium Gluconate 1,000 MG in D5% in Water 100 ML IVPB PRN (20:06)
[2016-06-17] MEDS ORDERED: Sodium Phosphate 30 MMOL in D5% in Water 100 ML IVPB PRN (20:06)
[2016-06-17] MEDS ORDERED: Magnesium Sulfate 2 GM in D5% in Water 100 ML IVPB PRN (20:06)
[2016-06-17 21:00] LABS: Hematocrit 31.5 % (35.3-44.9); Hemoglobin 10.3 g/dL (11.5-15.4); Immature Platelets 7.4 % (1.1-6.1); Mean Corpuscular HGB Conc 32.7 g/dL (31.6-35.5); Mean Corpuscular Hemoglobin 28.5 pg (28.0-33.3); Mean Platelet Volume 10.8 fL (9.4-12.4); Red Blood Count 3.62 M/mcL (3.82-4.97); Red Cell Distribution Width 13.7 % (11.5-14.5)
[2016-06-17] MEDS ORDERED: Insulin DETEMIR 100 UNIT/ML X5UNITS SQ SCH (21:00)
[2016-06-17 21:12] LABS: Calcium 7.8 mg/dL (8.6-10.8); Potassium 3.8 mEq/L (3.5-4.5)
[2016-06-17 21:22] LABS: Platelet Count 90 K/mcL (140-400)
[2016-06-17 21:28] LABS: Lymphocytes # 1.4 K/mcL (0.6-4.6); Monocytes # 0.3 K/mcL (0.0-1.3); Neutrophils # 14.6 K/mcL (1.6-8.9); Toxic Granulation Present (Not Present)
[2016-06-17 21:32] LABS: Burr Cells 1+ (Not Present)
[2016-06-17 21:35] LABS: Platelet Estimate Decreased (Normal)
[2016-06-17] MEDS ORDERED: *HR* LORazepam 2 MG/ML VIAL IVP ONE (22:45)
[2016-06-18] MEDS: Levalbuterol Neb 1.25 MG/3 ML IH SCH ×6 (00:03→19:37)
[2016-06-18] MEDS: Ipratropium Neb 0.5 MG NEBULIZER IH SCH ×6 (00:03→19:37)
[2016-06-18] MEDS: Piperacillin/Tazobactam 3.375 GM in D5% in Water (Mini-Bag+) 100 ML IVPB SCH ×4 (00:15→23:13)
[2016-06-18] MEDS: *HR* Heparin 5,000 UNIT/ML VIAL SQ SCH ×4 (00:16→23:13)
[2016-06-18] MEDS ORDERED: *HR* LORazepam 2 MG/ML VIAL IVP PRN (00:41)
[2016-06-18] MEDS ORDERED: 0.9 % Sodium Chloride 1,000 ML ONE (01:07)
[2016-06-18] MEDS ORDERED: 0.9 % Sodium Chloride 1,000 ML IVC ONE (01:15)
[2016-06-18 01:19] LABS: ABG HCO3 10.1 mEQ/L (21-27); ABG Oxygen Saturation 99 % (95-98); ABG PCO2 22 mmHg (35-45); ABG PH 7.27 pH Units (7.32-7.45); ABG PO2 131 mmHg (85-104); ABG TCO2 10.8 mEq/L (20-26)
[2016-06-18 01:21] LABS: Blood Gas FiO2 35 %
[2016-06-18] MEDS: Sodium Bicarbonate 100 MEQ in 0.45 % Sodium Chloride 1,000 ML IVC SCH ×2 (01:29→08:38)
[2016-06-18] MEDS: Norepinephrine 4 MG in D5% in Water 250 ML IVC SCH ×6 (01:37→18:23)
[2016-06-18] MEDS ORDERED: *HR* FentaNYL (PF) 100 MCG/2 ML VIAL ONE (01:49)
[2016-06-18] MEDS ORDERED: Lacri-Lube 3.5 GM TUBE BOTH EYES PRN (02:06)
[2016-06-18] MEDS ORDERED: 0.9 % Sodium Chloride 500 ML ONE (02:15)
[2016-06-18] MEDS: FentaNYL (PF) 1,000 MCG in 0.9 % Sodium Chloride 80 ML IVC SCH ×3 (02:48→22:14)
--- NOTE | 2016-06-18 02:57 | Event Note ---
Date of Encounter: 06/18/16 Time of Encounter: 00:55 RAPID RESPONSE DX=Severe sepsis w/ multi-organ failure Severe lactic/metabolic acidosis Septic-hypovolemic (likely, combined cardiogenic) shock Acute toxic-metabolic encephalopathy-delirium Acute respiratory failure r/o pulm edema r/o PNA r/o ARDS Sepsis associated disseminated intravascular coagulation Stage IV TISH/CKD w/ anasarca Adynamic ileus r/o SBO r/o bowel ischemia Pyelonephritis/polymicrobial UTI Vtzvuwqogcwk-parebfjinj-dyhujxdkmucoe state r/o DKA Atrial Fibrillation Rvr Demand Ischemia associated severe V/Q mismatch Condition serious ---->Critical Prognosis guarded---->Poor Code status----> FULL TX=Bipap---->Intubation/mechanical ventilation IV Levophed drip IV albumin IV sodium bicarbonate drip IV amiodarone IV fentanyl+versed sedation---->IV propyfol (when hemodynamics permit) Stat: comprehensive labs/studies pending Stat: CXR+KUB Plan of care, findings, condition, goals, etc discussed w/ at bedside. All questions addressed. Consultation=Fire Boss/CCM/pulmonary (consider=Nephrology; Cardiology) Orders written... Vital Signs Temp Pulse Resp BP Pulse Ox 06/18/16 00:05 25 100 06/18/16 00:00 100 34 95/64 96 06/17/16 23:17 121 24 107/67 98 06/17/16 22:00 121 26 82/69 99 06/17/16 21:00 126 28 89/70 94 06/17/16 20:22 143 28 92/60 99 06/17/16 19:38 97.4 F L 131 28 111/90 95 06/17/16 18:30 136 28 100/53 95 06/17/16 17:00 96.4 F L 138 22 98/35 94 06/17/16 16:59 96.4 F L 06/17/16 16:00 128 16 93/74 95 06/17/16 15:00 132 18 91/68 95 06/17/16 14:00 147 18 113/47 95 06/17/16 13:00 128 20 108/53 95 06/17/16 12:00 153 24 93/67 94 06/17/16 11:40 96.4 F L 06/17/16 11:00 160 22 98/70 97 06/17/16 10:00 176 35 130/59 97 06/17/16 09:25 181 06/17/16 09:24 181 31 98/76 97 06/17/16 07:52 97.7 F 131 32 96/58 96 06/17/16 06:34 145 37 124/59 99 06/17/16 06:27 38 100 06/17/16 06:18 40 99 06/17/16 05:52 101.4 F H 149 42 139/84 95 06/17/16 04:05 100.3 F H 122 20 122/74 94 Intake and Output 06/17/16 06/17/16 06/18/16 15:59 23:59 07:59 Intake Total 2221 / 2221 906.0 / 906.0 151.5 / 151.5 Output Total 300 / 300 375 / 375 Balance 1921 / 1921 531.0 / 531.0 151.5 / 151.5 Intake: IV Fluids 2171 / 2171 306.0 / 306.0 151.5 / 151.5 0.9 % Sodium Chloride 1, 1100 / 1100 000 ML @ 125 mls/hr IVC . Q8H [facility] Rx#:[id number] Amiodarone 360mg/200mL 67 / 67 Drip Premix 360 mg In 200 ml @ 1 MG/MIN 33.333 mls /hr IVC ONCE ONE Rx#: [id number] HumuLIN R 100 UNIT In 0. 106.0 / 106.0 51.5 / 51.5 9 % Sodium Chloride 100 ML @ 12.5 UNIT/HR 12.62 mls/hr IVC CONT [facility] Rx#: [id number] Sodium Bicarbonate 100 100 / 100 MEQ In 0.45% Sodium Chloride 1000 Ml 1000 Ml 1,000 ML @ 125 mls/hr IVC .[id number] [facility] Rx#: [id number] Amiodarone 150mg/100mL 200 / 200 Premix 150 mg In 100 ml @ 300 mls/hr IVPB ONCE ONE Rx#:[id number] Magnesium Sulfate 2 GM In 104 / 104 Dextrose 5% 100 ML @ 100 mls/hr IVPB ONCE ONE Rx# :[id number] Zosyn 3.375 GM In 100 / 100 100 / 100 Dextrose 5% (Minibag+) 100 ML 100 ML @ 25 mls/hr IVPB Q8HR [facility] Rx#: [id number] Potassium Chloride 10 mEq 100 / 100 100 / 100 /100mL 10 meq In 100 ml @ 100 mls/hr IVPB Q1H PRN Rx#:[id number] Vancocin 1,750 MG In 500 / 500 Dextrose 5% 500 ML @ 333. 34 mls/hr IVPB ONCE ONE Rx#:[id number] Oral 50 / 50 600 / 600 Output: Catheter 300 / 300 375 / 375 Other: # Bowel Movements 0 Weight 122 kg Blood Glucose* 405 299 145 Short CBC 06/17/16 06/17/16 Range/Units 20:27 06:16 WBC 17.0 H D 6.1 (4.3-11.1) K/mcL Hgb 10.3 L 11.0 L (11.5-15.4) g/dL Hct 31.5 L 34.0 L (35.3-44.9) % Plt Count 90 L 134 L (140-400) K/mcL Neutrophils # 14.6 H 4.4 (1.6-8.9) K/mcL BMP 06/17/16 06/17/16 06/17/16 Range/Units 20:27 10:04 06:16 Sodium 130 L 135 L 132 L (136-145) mEq/L Potassium 3.8 3.9 4.0 (3.5-4.5) mEq/L Chloride 100 104 101 (98-109) mEq/L Carbon Dioxide 13 L 16 L 14 L (19-29) mEq/L BUN 52 H 43 H 46 H (7-20) mg/dL Creatinine 2.44 H 2.20 H 2.40 H (0.57-1.11) mg/dL Glucose 423 H 337 H 291 H (70-99) mg/dL Calcium 7.8 L 7.6 L 8.2 L (8.6-10.8) mg/dL Cardiac Enzymes 06/17/16 Range/Units 20:27 Troponin I 0.03 (0-0.03) ng/mL Abnormal lab results WBC 17.0 K/mcL (4.3-11.1) H D 06/17/16 20:27 RBC 3.62 M/mcL (3.82-4.97) L 06/17/16 20:27 Hgb 10.3 g/dL (11.5-15.4) L 06/17/16 20:27 Hct 31.5 % (35.3-44.9) L 06/17/16 20:27 Plt Count 90 K/mcL (140-400) L 06/17/16 20:27 Band Neutrophils % 12.0 % (0-4) H 06/17/16 20:27 Metamyelocytes % 4.0 % (0) H 06/17/16 20:27 Neutrophils # 14.6 K/mcL (1.6-8.9) H 06/17/16 20:27 Toxic Granulation Present (Not Present) A 06/17/16 20:27 Platelet Estimate Decreased (Normal) L 06/17/16 20:27 Clumped Platelets Few (Not Present) A 06/16/16 22:56 Immature Plt Fraction 7.4 % (1.1-6.1) H 06/17/16 20:27 [place] Cells 1+ (Not Present) A 06/17/16 20:27 PT 13.7 Seconds (9.4-12.1) H 06/16/16 22:56 ABG pH 7.27 pH Units (7.32-7.45) L 06/18/16 01:12 ABG pCO2 22 mmHg (35-45) L 06/18/16 01:12 ABG pO2 131 mmHg (85-104) H 06/18/16 01:12 ABG HCO3 10.1 mEQ/L (21-27) L 06/18/16 01:12 ABG Total CO2 10.8 mEq/L (20-26) L 06/18/16 01:12 ABG O2 Saturation 99 % (95-98) H 06/18/16 01:12 ABG Base Excess -15.0 mEq/L (-2.0 to 3.0) L 06/18/16 01:12 Sodium 130 mEq/L (136-145) L 06/17/16 20:27 Carbon Dioxide 13 mEq/L (19-29) L 06/17/16 20:27 BUN 52 mg/dL (7-20) H 06/17/16 20:27 Creatinine 2.44 mg/dL (0.57-1.11) H 06/17/16 20:27 Est GFR ( Amer) 24 (> 60) L 06/17/16 20:27 Est GFR (Non-Af Amer) 20 (> 60) L 06/17/16 20:27 Glucose 423 mg/dL (70-99) H 06/17/16 20:27 POC Glucose 145 (58-89) H 06/18/16 01:17 Hemoglobin A1c 9.9 % (-5.6) H 06/17/16 10:04 Calculated Osmolality 302 (280-300) H 06/17/16 20:27 Lactic Acid 11.2 mmol/L (0.5-2.2) H* 06/18/16 00:07 Calcium 7.8 mg/dL (8.6-10.8) L 06/17/16 20:27 Phosphorus 2.2 mg/dL (2.3-4.7) L 06/17/16 10:04 Magnesium 2.7 mg/dL (1.6-2.6) H 06/17/16 10:04 Direct Bilirubin 0.7 mg/dL (0.0-0.5) H 06/16/16 22:56 Alkaline Phosphatase 259 Units/L (38-126) H 06/16/16 22:56 B-Natriuretic Peptide 973 pg/mL (0-100) H 06/16/16 22:56 Albumin 2.5 g/dL (3.5-5.0) L 06/16/16 22:56 Globulin 4.4 g/dL (2.4-3.5) H 06/16/16 22:56 Albumin/Globulin Ratio 0.6 (1.1-2.2) L 06/16/16 22:56 Beta-Hydroxybutyric Acd 1.24 mmol/L (0.02-0.27) H 06/17/16 01:19 Urine Clarity Turbid (Clear) A 06/16/16 23:43 Urine Protein 100 mg/dL (Neg-Trace) H 06/16/16 23:43 Urine Glucose (UA) 500 mg/dL (Normal) H 06/16/16 23:43 Urine Ketones Trace mg/dL (Negative) H 06/16/16 23:43 Urine Blood Large (Negative) H 06/16/16 23:43 Ur Leukocyte Esterase Large (Negative) H 06/16/16 23:43 Urine Microscopic WBC TNTC per hpf (0-3) H 06/16/16 23:43 Ur Squamous Epith Cells Many per lpf (None-Few) H 06/16/16 23:43 Amorphous Sediment Moderate (Few) H 06/16/16 23:43 Urine Bacteria Many per hpf (None-Few) H 06/16/16 23:43 Enterobacteriac sp PCR DETECTED (Not Detect) A 06/16/16 23:01 E. coli (PCR) DETECTED (Not Detect) A 06/16/16 23:01 Microbiology 06/17/16 00:34 Nasopharyngeal Influenza Types A,B Antigen (NIKKO) - Final Serology 06/16/16 23:01: Breann albicans (PCR) Not Detected, C. glabrata (PCR) Not Detected, C. krusei (PCR) Not Detected, C. parapsilosis (PCR) Not Detected, C. tropicalis (PCR) Not Detected, E. coli (PCR) DETECTED A, Klebsiella pneumoniae Not Detected, N. meningitidis (PCR) Not Detected, Staph aureus (PCR) Not Detected, Group A Strep DNA Not Detected, Group B Strep (PCR) Not Detected, Strep pneumoniae (PCR) Not Detected, KPC (blaKPC) Detect PCR Not Detected Head CT 06/16/16 22:46 IMPRESSION: Motion limited. No hemorrhage or mass. Trace fluid in the sphenoid D/ / Emile Malone MD / Emile Malone MD Interpreting Provider: Emile Malone MD
[2016-06-18 03:32] LABS: ABG HCO3 10.6 mEQ/L (21-27); ABG Oxygen Saturation 92 % (95-98); ABG PCO2 34 mmHg (35-45); ABG PO2 86 mmHg (85-104); ABG TCO2 11.6 mEq/L (20-26)
[2016-06-18 03:36] LABS: Blood Gas FiO2 60 %
[2016-06-18 04:09] LABS: Hemoglobin 10.5 g/dL (11.5-15.4); Mean Platelet Volume 11.3 fL (9.4-12.4)
[2016-06-18 04:11] LABS: Hematocrit 32.4 % (35.3-44.9); Immature Platelets 10.3 % (1.1-6.1); Mean Corpuscular HGB Conc 32.4 g/dL (31.6-35.5); Mean Corpuscular Hemoglobin 28.9 pg (28.0-33.3); Mean Corpuscular Volume 89.3 fL (83.0-100.0); Monocytes # 1.9 K/mcL (0.0-1.3); Nucleated Red Blood Cells 0.4 /100 WBC (0); Red Blood Count 3.63 M/mcL (3.82-4.97); Red Cell Distribution Width 14.2 % (11.5-14.5)
[2016-06-18 04:15] LABS: Platelet Count 83 K/mcL (140-400)
[2016-06-18 04:19] LABS: Hemoglobin A1C 9.4 %; INR 1.5; Prothrombin Time 16.6 Seconds (9.4-12.1)
[2016-06-18 04:22] LABS: Activated Partial Thrombo Time 25.8 Seconds (26.0-36.0)
[2016-06-18 04:26] LABS: Albumin 2.2 g/dL (3.5-5.0); Albumin/Globulin Ratio 0.6 (1.1-2.2); Calcium 7.4 mg/dL (8.6-10.8); Globulin 3.7 g/dL (2.4-3.5); Magnesium 3.3 mg/dL (1.6-2.6); Total Protein 5.9 g/dL (6.0-8.3)
[2016-06-18 04:33] LABS: Phosphorous 7.6 mg/dL (2.3-4.7)
[2016-06-18 04:34] LABS: Bilirubin,Total 2.2 mg/dL (0.2-1.2)
[2016-06-18 04:37] LABS: Potassium 6.3 mEq/L (3.5-4.5)
[2016-06-18 04:38] LABS: Vancomycin,Trough 16.1 mcg/mL (10-20)
[2016-06-18 04:39] LABS: Lymphocytes # 2.3 K/mcL (0.6-4.6); Neutrophils # 14.7 K/mcL (1.6-8.9)
[2016-06-18 04:40] LABS: Burr Cells 1+ (Not Present); Platelet Estimate Decreased (Normal); Reactive Lymphocytes Present (Not Present); Toxic Granulation Present (Not Present)
[2016-06-18] MEDS: Insulin LISPRO 300 UNITS/3 ML VIAL SQ SCH ×2 (05:11→09:27)
[2016-06-18] MEDS: Amiodarone Premix 360 MG/200 ML BAG IVC SCH ×2 (05:54→17:39)
[2016-06-18] MEDS ORDERED: MethylPREDNISolone 40 MG/ML VIAL IVP SCH (06:00)
[2016-06-18] MEDS: Lacri-Lube 3.5 GM TUBE BOTH EYES SCH ×6 (06:00→23:14)
[2016-06-18] MEDS ORDERED: *HR* Etomidate 20 MG/10 ML AMPUL IVP ONE (08:31)
[2016-06-18] MEDS ORDERED: *HR* Midazolam HCl 5 MG/5 ML VIAL IVP ONE (08:31)
[2016-06-18] MEDS: Vasopressin 20 UNIT in 0.9 % Sodium Chloride 50 ML IVC SCH ×2 (08:39→17:55)
[2016-06-18] MEDS ORDERED: Pantoprazole 40 MG VIAL IVP SCH (09:00)
--- NOTE | 2016-06-18 09:25 | Urology - Consult Note ---
Date of Encounter: 06/18/16 Time of Encounter: 09:25 - Assessment and Plan (1) Ureteral stone Current Visit: Yes Status: Acute Assessment and plan: Infected obstruction right ureteral stone. She is currently intubated and sedated. I recommend placing a right ureteral stent to drain the infection from her kidney. Plan for cystoscopy and right ureteral stent placement. All risks were informed. Patient's care was discussed with her and he agrees to proceed. (2) Urinary tract infection Current Visit: Yes Status: Acute Assessment and plan: Continue IV antibiotics. Urology will follow along. Qualifiers: Urinary tract infection type: site unspecified Hematuria presence: with hematuria Qualified Code(s): N39.0 - Urinary tract infection, site not specified; R31.9 - Hematuria, unspecified Urology CN:HPI Consult date: 06/18/16 Reason for consult Urology: Other (Infected, obstructed stone) Requesting physician: Ananth Seymour History of present illness: 61 year old woman was admitted for a urinary tract infection. Her condition clinically worsened overnight and she was admitted to the ICU. She was intubated. She is on vasopresors. A CT done this morning showed a right ureteral stone and evidence of right hydronephrosis. I was consulted to place a stent. She is currently intubated and sedated. Past Med Surg Social Fam HX - Past Medical History Medical history: diabetes, hyperlipidemia, hypertension, thyroid disease, other - Past Surgical History Surgical History: no surgical history - Social History Smoking Status: Never smoker Alcohol use: none Drug use: none - Family History Mother Hx Family Cardiac Disorders: Yes Hx Family Endocrine Disorder: Yes (diabetes) Father Hx Family Endocrine Disorder: Yes (diabetes) Sister Hx Family Endocrine Disorder: Yes (diabetes) Medications and Allergies Anastrozole [Arimidex] 1 mg PO DAILY 06/17/16 [History] GlyBURIDE [GlyBURIDE] 5 mg PO BID 06/17/16 [History] Insulin Glargine,Hum.rec.anlog [Lantus Solostar] 35 unit SQ QAM 06/17/16 [ History] Insulin Glargine,Hum.rec.anlog [Lantus Solostar] 40 unit SQ QPM 06/17/16 [ History] Levothyroxine [Synthroid] 25 mcg PO DAILY 06/17/16 [History] Liraglutide [Victoza 2-Jacinto] 0.6 mg SQ DAILY 06/17/16 [History] Lisinopril [Zestril] 10 mg PO DAILY 06/17/16 [History] Metformin HCl [Glucophage] 1,000 mg PO BID 06/17/16 [History] Simvastatin [Zocor] 20 mg PO HS 06/17/16 [History] Spironolactone [Aldactone] 25 mg PO DAILY 06/17/16 [History] Venlafaxine HCl [Venlafaxine HCl ER] 150 mg PO DAILY 06/17/16 [History] Allergies No Known Allergies Allergy (Verified 06/16/16 22:01) Review of Systems ROS unobtainable: due to endotracheal tube Exam Initial Vital Signs Temp Pulse Resp BP Pulse Ox 99.5 F 143 36 125/68 93 06/16/16 21:54 06/16/16 21:54 06/16/16 21:54 06/16/16 21:54 06/16/16 21:54 - General physical appearance Present: well developed, well nourished, other (Intubated) - ENT Present: normal nares - Respiratory Present: other (on a ventilator) - Cardiovascular Cardiovascular exam IM: tachycardia - Abdomen Abdomen: Present: soft - Genitourinary Present: normal external genitalia Urology Results - Labs 06/18/16 03:45 06/18/16 03:45 Abnormal lab results WBC 19.4 K/mcL (4.3-11.1) H 06/18/16 03:45 RBC 3.63 M/mcL (3.82-4.97) L 06/18/16 03:45 Hgb 10.5 g/dL (11.5-15.4) L 06/18/16 03:45 Hct 32.4 % (35.3-44.9) L 06/18/16 03:45 Plt Count 83 K/mcL (140-400) L 06/18/16 03:45 Band Neutrophils % 8.0 % (0-4) H 06/18/16 03:45 Metamyelocytes % 2.0 % (0) H 06/18/16 03:45 Neutrophils # 14.7 K/mcL (1.6-8.9) H 06/18/16 03:45 Monocytes # 1.9 K/mcL (0.0-1.3) H 06/18/16 03:45 Nucleated RBCs/100 WBC 0.4 /100 WBC (0) H 06/18/16 03:45 Reactive Lymphocytes Present (Not Present) A 06/18/16 03:45 Toxic Granulation Present (Not Present) A 06/18/16 03:45 Platelet Estimate Decreased (Normal) L 06/18/16 03:45 Clumped Platelets Few (Not Present) A 06/16/16 22:56 Immature Plt Fraction 10.3 % (1.1-6.1) H 06/18/16 03:45 [place] Cells 1+ (Not Present) A 06/18/16 03:45 PT 16.6 Seconds (9.4-12.1) H 06/18/16 03:45 APTT 25.8 Seconds (26.0-36.0) L 06/18/16 03:45 Fibrinogen 791 mg/dL (169-393) H* 06/18/16 03:45 D-Dimer 47627 ng/mLFEU (0-500) H 06/18/16 03:45 ABG pH 7.10 pH Units (7.32-7.45) L* D 06/18/16 03:24 ABG pCO2 34 mmHg (35-45) L 06/18/16 03:24 ABG HCO3 10.6 mEQ/L (21-27) L 06/18/16 03:24 ABG Total CO2 11.6 mEq/L (20-26) L 06/18/16 03:24 ABG O2 Saturation 92 % (95-98) L 06/18/16 03:24 ABG Base Excess -18.0 mEq/L (-2.0 to 3.0) L 06/18/16 03:24 Sodium 134 mEq/L (136-145) L 06/18/16 03:45 Potassium 6.3 mEq/L (3.5-4.5) H D 06/18/16 03:45 Carbon Dioxide 9 mEq/L (19-29) L* 06/18/16 03:45 BUN 55 mg/dL (7-20) H 06/18/16 03:45 Creatinine 2.80 mg/dL (0.57-1.11) H 06/18/16 03:45 Est GFR ( Amer) 21 (> 60) L 06/18/16 03:45 Est GFR (Non-Af Amer) 17 (> 60) L 06/18/16 03:45 Glucose 129 mg/dL (70-99) H 06/18/16 03:45 POC Glucose 116 (58-89) H 06/18/16 07:43 Hemoglobin A1c 9.4 % (-5.6) H 06/18/16 03:45 Lactic Acid 11.4 mmol/L (0.5-2.2) H* 06/18/16 03:45 Calcium 7.4 mg/dL (8.6-10.8) L 06/18/16 03:45 Ionized Calcium 0.88 mmol/L (1.15-1.35) L 06/18/16 03:45 Phosphorus 7.6 mg/dL (2.3-4.7) H D 06/18/16 03:45 Magnesium 3.3 mg/dL (1.6-2.6) H 06/18/16 03:45 Total Bilirubin 2.2 mg/dL (0.2-1.2) H D 06/18/16 03:45 Direct Bilirubin 0.7 mg/dL (0.0-0.5) H 06/16/16 22:56 AST 2893 Units/L (5-34) H 06/18/16 03:45 ALT 1243 Units/L (0-55) H 06/18/16 03:45 Alkaline Phosphatase 196 Units/L (38-126) H 06/18/16 03:45 B-Natriuretic Peptide 939 pg/mL (0-100) H 06/18/16 03:45 Serum Total Protein 5.9 g/dL (6.0-8.3) L 06/18/16 03:45 Albumin 2.2 g/dL (3.5-5.0) L 06/18/16 03:45 Globulin 3.7 g/dL (2.4-3.5) H 06/18/16 03:45 Albumin/Globulin Ratio 0.6 (1.1-2.2) L 06/18/16 03:45 Beta-Hydroxybutyric Acd 1.24 mmol/L (0.02-0.27) H 06/17/16 01:19 Urine Clarity Turbid (Clear) A 06/16/16 23:43 Urine Protein 100 mg/dL (Neg-Trace) H 06/16/16 23:43 Urine Glucose (UA) 500 mg/dL (Normal) H 06/16/16 23:43 Urine Ketones Trace mg/dL (Negative) H 06/16/16 23:43 Urine Blood Large (Negative) H 06/16/16 23:43 Ur Leukocyte Esterase Large (Negative) H 06/16/16 23:43 Urine Microscopic WBC TNTC per hpf (0-3) H 06/16/16 23:43 Ur Squamous Epith Cells Many per lpf (None-Few) H 06/16/16 23:43 Amorphous Sediment Moderate (Few) H 06/16/16 23:43 Urine Bacteria Many per hpf (None-Few) H 06/16/16 23:43 Enterobacteriac sp PCR DETECTED (Not Detect) A 06/16/16 23:01 E. coli (PCR) DETECTED (Not Detect) A 06/16/16 23:01 Diabetes panel 06/17/16 06/17/16 06/17/16 Range/Units 10:04 10:04 20:27 Sodium 135 L 130 L (136-145) mEq/L Potassium 3.9 3.8 (3.5-4.5) mEq/L Chloride 104 100 (98-109) mEq/L Carbon Dioxide 16 L 13 L (19-29) mEq/L BUN 43 H 52 H (7-20) mg/dL Creatinine 2.20 H 2.44 H (0.57-1.11) mg/dL Glucose 337 H 423 H (70-99) mg/dL Hemoglobin A1c 9.9 H ( - 5.6) % Calcium 7.6 L 7.8 L (8.6-10.8) mg/dL AST (5-34) Units/L ALT (0-55) Units/L Alkaline Phosphatase (38-126) Units/L Albumin (3.5-5.0) g/dL 06/18/16 06/18/16 Range/Units 03:45 03:45 Sodium 134 L (136-145) mEq/L Potassium 6.3 H D (3.5-4.5) mEq/L Chloride 102 (98-109) mEq/L Carbon Dioxide 9 L* (19-29) mEq/L BUN 55 H (7-20) mg/dL Creatinine 2.80 H (0.57-1.11) mg/dL Glucose 129 H (70-99) mg/dL Hemoglobin A1c 9.4 H ( - 5.6) % Calcium 7.4 L (8.6-10.8) mg/dL AST 2893 H (5-34) Units/L ALT 1243 H (0-55) Units/L Alkaline Phosphatase 196 H (38-126) Units/L Albumin 2.2 L (3.5-5.0) g/dL Thyroid panel 06/17/16 Range/Units 20:27 TSH 1.400 (0.350-4.840) mcIU/mL Calcium panel 06/17/16 06/17/16 06/18/16 Range/Units 10:04 20:27 03:45 Calcium 7.6 L 7.8 L 7.4 L (8.6-10.8) mg/dL Phosphorus 2.2 L 7.6 H D (2.3-4.7) mg/dL Albumin 2.2 L (3.5-5.0) g/dL Pituitary panel 06/17/16 06/17/16 06/17/16 Range/Units 10:04 20:27 20:27 Sodium 135 L 130 L (136-145) mEq/L Potassium 3.9 3.8 (3.5-4.5) mEq/L Chloride 104 100 (98-109) mEq/L Carbon Dioxide 16 L 13 L (19-29) mEq/L BUN 43 H 52 H (7-20) mg/dL Creatinine 2.20 H 2.44 H (0.57-1.11) mg/dL Glucose 337 H 423 H (70-99) mg/dL Calcium 7.6 L 7.8 L (8.6-10.8) mg/dL TSH 1.400 (0.350-4.840) mcIU/mL 06/18/16 Range/Units 03:45 Sodium 134 L (136-145) mEq/L Potassium 6.3 H D (3.5-4.5) mEq/L Chloride 102 (98-109) mEq/L Carbon Dioxide 9 L* (19-29) mEq/L BUN 55 H (7-20) mg/dL Creatinine 2.80 H (0.57-1.11) mg/dL Glucose 129 H (70-99) mg/dL Calcium 7.4 L (8.6-10.8) mg/dL TSH (0.350-4.840) mcIU/mL Adrenal panel 06/17/16 06/17/16 06/18/16 Range/Units 10:04 20:27 03:45 Sodium 135 L 130 L 134 L (136-145) mEq/L Potassium 3.9 3.8 6.3 H D (3.5-4.5) mEq/L Chloride 104 100 102 (98-109) mEq/L Carbon Dioxide 16 L 13 L 9 L* (19-29) mEq/L BUN 43 H 52 H 55 H (7-20) mg/dL Creatinine 2.20 H 2.44 H 2.80 H (0.57-1.11) mg/dL Glucose 337 H 423 H 129 H (70-99) mg/dL Calcium 7.6 L 7.8 L 7.4 L (8.6-10.8) mg/dL Total Bilirubin 2.2 H D (0.2-1.2) mg/dL AST 2893 H (5-34) Units/L ALT 1243 H (0-55) Units/L Alkaline Phosphatase 196 H (38-126) Units/L Albumin 2.2 L (3.5-5.0) g/dL All other labs normal. - Imaging CT scan - abdomen: report reviewed, image reviewed CT scan - pelvis: report reviewed, image reviewed Consult Discharge Plan - Plan Referrals: Bharti Jenkins MD [Primary Care Provider] - (Web requested 06-17-16)
--- NOTE | 2016-06-18 09:50 | Pulmonology Progress Note ---
Date of Encounter: 06/18/16 Time of Encounter: 07:05 Assessment and Plan (1) Sepsis due to Gram-negative organism with septic shock Current Visit: Yes Status: Acute Multi organ failure. With worsening renal failure, respiratory failure with hypoxia, acidemia (lactate of 11.4), thrombocytopenia and shock liver. Source of UTI with obstructive right renal stone and hydronephrosis. The patient is currently sedated and on a vent. Pressors of both Vasopressin and Levohed currently running. Systemic steroid replacement with hydrocortisone 50mg Q6hr. Continue Zosyn Day #2. (2) Bacteremia due to Gram-negative bacteria Current Visit: Yes Status: Acute Sensitivities pending. See plan above Gram negative bacteria of E. Coli and Enterobacteriaceae isolated. (3) Acute encephalopathy Current Visit: Yes Status: Acute Secondary to septic shock. (4) Atrial fibrillation with RVR Current Visit: Yes Status: Acute Continue amiodarone drip at this time. Hold cardizem and metoprolol as the patient is requiring blood pressure support with vasopressin and levophed. Platelets currently 83. Given septic shock will not anticoagulate at this time. (5) Diabetes Current Visit: Yes Status: Acute Continue insulin drip at this time. Qualifiers: Diabetes mellitus type: type 2 Diabetes mellitus complication status: without complication Diabetes mellitus terminal gauger insulin use: without fdc use Qualified Code(s): E11.9 - Type 2 diabetes mellitus without complications (6) TISH (acute kidney injury) Current Visit: Yes Status: Acute Currently on CRRT with nephrology following. Worsening renal function with multiple electrolyte abnormalities. Acidemia and hyperkalemia present. Continue CRRT. (7) Ureteral stone Current Visit: Yes Status: Acute CT abdomen and pelvis: Moderate right-sided hydronephrosis and right-sided hydroureter. There is a stone seen in the distal right ureter measuring 7-8mm in size, poximal to the right UVJ. No stones in the right kidney. Right ureter stent placed per urology. (8) Urinary tract infection Current Visit: Yes Status: Acute See plan above. Qualifiers: Urinary tract infection type: site unspecified Hematuria presence: with hematuria Qualified Code(s): N39.0 - Urinary tract infection, site not specified; R31.9 - Hematuria, unspecified (9) DVT prophylaxis Current Visit: Yes Status: Acute Heparin Q8hr Protonix for GI prphylaxis Subjective Principal diagnosis: Septic shock Interval history: The patient acutely decompensated overnight. She was intubated and started on pressors. She underwent CT of the chest, abdomen, and pelvis. She was found to have a right renal stone that was obstructive and causing hydronephrosis. Her lactate acutely elevated to 11.4. She became acidotic with a pH of 7.1. Right IJ central venous catheter and left IJ temporary dialysis catheters were placed. Objective PUL Vital signs: Last Vital Signs Temp 98.7 F 06/18/16 07:25 Pulse 120 06/18/16 09:00 Resp 15 06/18/16 09:00 BP 115/65 06/18/16 09:00 Pulse Ox 94 06/18/16 09:00 General appearance: other (intubated) Eyes: nonicteric ENT: oropharynx moist Neck: supple Effort: other (on vent) Auscultation: bilateral: rhonchi Cardiovascular: irregular rhythm (with tachycardia) Gastrointestinal: normoactive bowel sounds, soft, non-tender, other (obese) Integumentary: other (diaphoretic) Extremities: cool, cyanosis (mild) other (sedated and on a vent) Ventilator Settings Ventilator Settings: Ventilator Settings, Last 8 Hours Ventilator Mode VC+ Ventilator Mode VC+ Ventilator Mode VC+ Ventilator Mode VC+ Ventilator Mode VC+ Ventilator Mode VC+ Ventilator Mode VC+ Ventilator Mode VC+ Ventilator Mode A/C Ventilator Mode VC+ Ventilator Mode VC+ Ventilator Mode A/C Ventilator Tidal Volume 500 Setting Ventilator Tidal Volume 500 Setting Ventilator Tidal Volume 500 Setting Ventilator Tidal Volume 500 Setting Ventilator Tidal Volume 500 Setting Ventilator Tidal Volume 500 Setting Ventilator Tidal Volume 500 Setting Ventilator Tidal Volume 500 Setting Ventilator Tidal Volume 500 Setting Ventilator Tidal Volume 500 Setting Ventilator Tidal Volume 500 Setting Ventilator Tidal Volume 500 Setting Ventilator Respiratory Rate 12 Setting Ventilator Respiratory Rate 12 Setting Ventilator Respiratory Rate 12 Setting Ventilator Respiratory Rate 12 Setting Ventilator Respiratory Rate 12 Setting Ventilator Respiratory Rate 12 Setting Ventilator Respiratory Rate 12 Setting Ventilator Respiratory Rate 12 Setting Ventilator Respiratory Rate 12 Setting Ventilator Respiratory Rate 12 Setting Ventilator Respiratory Rate 12 Setting Ventilator Respiratory Rate 12 Setting Actual Respiratory Rate 14 Actual Respiratory Rate 14 Actual Respiratory Rate 15 Actual Respiratory Rate 12 Actual Respiratory Rate 16 Actual Respiratory Rate 18 Actual Respiratory Rate 21 Actual Respiratory Rate 25 Actual Respiratory Rate 24 Actual Respiratory Rate 25 Actual Respiratory Rate 23 Positive End Expiratory 5 Pressure Positive End Expiratory 5 Pressure Positive End Expiratory 5 Pressure Positive End Expiratory 5 Pressure Positive End Expiratory 5 Pressure Positive End Expiratory 5 Pressure Positive End Expiratory 5 Pressure Positive End Expiratory 5 Pressure Positive End Expiratory 5 Pressure Positive End Expiratory 5 Pressure Positive End Expiratory 5 Pressure Positive End Expiratory 5 Pressure Peak Inspiratory Airway 21 Pressure Peak Inspiratory Airway 21 Pressure Peak Inspiratory Airway 25 Pressure Peak Inspiratory Airway 22 Pressure Peak Inspiratory Airway 22 Pressure Peak Inspiratory Airway 22 Pressure Peak Inspiratory Airway 18 Pressure Peak Inspiratory Airway 26 Pressure Peak Inspiratory Airway 20 Pressure Peak Inspiratory Airway 26 Pressure Peak Inspiratory Airway 25 Pressure Results - Laboratory Findings CBC and BMP: 06/18/16 03:45 06/18/16 03:45 ABG ABG pH 7.10 pH Units (7.32-7.45) L* D 06/18/16 03:24 ABG pCO2 34 mmHg (35-45) L 06/18/16 03:24 ABG pO2 86 mmHg (85-104) 06/18/16 03:24 ABG O2 Saturation 92 % (95-98) L 06/18/16 03:24 PT/INR, D-dimer PT 16.6 Seconds (9.4-12.1) H 06/18/16 03:45 D-Dimer 61579 ng/mLFEU (0-500) H 06/18/16 03:45 Abnormal lab findings: Abnormal lab results WBC 19.4 K/mcL (4.3-11.1) H 06/18/16 03:45 RBC 3.63 M/mcL (3.82-4.97) L 06/18/16 03:45 Hgb 10.5 g/dL (11.5-15.4) L 06/18/16 03:45 Hct 32.4 % (35.3-44.9) L 06/18/16 03:45 Plt Count 83 K/mcL (140-400) L 06/18/16 03:45 Band Neutrophils % 8.0 % (0-4) H 06/18/16 03:45 Metamyelocytes % 2.0 % (0) H 06/18/16 03:45 Neutrophils # 14.7 K/mcL (1.6-8.9) H 06/18/16 03:45 Monocytes # 1.9 K/mcL (0.0-1.3) H 06/18/16 03:45 Nucleated RBCs/100 WBC 0.4 /100 WBC (0) H 06/18/16 03:45 Reactive Lymphocytes Present (Not Present) A 06/18/16 03:45 Toxic Granulation Present (Not Present) A 06/18/16 03:45 Platelet Estimate Decreased (Normal) L 06/18/16 03:45 Clumped Platelets Few (Not Present) A 06/16/16 22:56 Immature Plt Fraction 10.3 % (1.1-6.1) H 06/18/16 03:45 [place] Cells 1+ (Not Present) A 06/18/16 03:45 PT 16.6 Seconds (9.4-12.1) H 06/18/16 03:45 APTT 25.8 Seconds (26.0-36.0) L 06/18/16 03:45 Fibrinogen 791 mg/dL (169-393) H* 06/18/16 03:45 D-Dimer 51577 ng/mLFEU (0-500) H 06/18/16 03:45 ABG pH 7.10 pH Units (7.32-7.45) L* D 06/18/16 03:24 ABG pCO2 34 mmHg (35-45) L 06/18/16 03:24 ABG HCO3 10.6 mEQ/L (21-27) L 06/18/16 03:24 ABG Total CO2 11.6 mEq/L (20-26) L 06/18/16 03:24 ABG O2 Saturation 92 % (95-98) L 06/18/16 03:24 ABG Base Excess -18.0 mEq/L (-2.0 to 3.0) L 06/18/16 03:24 Sodium 134 mEq/L (136-145) L 06/18/16 03:45 Potassium 6.3 mEq/L (3.5-4.5) H D 06/18/16 03:45 Carbon Dioxide 9 mEq/L (19-29) L* 06/18/16 03:45 BUN 55 mg/dL (7-20) H 06/18/16 03:45 Creatinine 2.80 mg/dL (0.57-1.11) H 06/18/16 03:45 Est GFR ( Amer) 21 (> 60) L 06/18/16 03:45 Est GFR (Non-Af Amer) 17 (> 60) L 06/18/16 03:45 Glucose 129 mg/dL (70-99) H 06/18/16 03:45 POC Glucose 198 (58-89) H 06/18/16 09:22 Hemoglobin A1c 9.4 % (-5.6) H 06/18/16 03:45 Lactic Acid 11.4 mmol/L (0.5-2.2) H* 06/18/16 03:45 Calcium 7.4 mg/dL (8.6-10.8) L 06/18/16 03:45 Ionized Calcium 0.88 mmol/L (1.15-1.35) L 06/18/16 03:45 Phosphorus 7.6 mg/dL (2.3-4.7) H D 06/18/16 03:45 Magnesium 3.3 mg/dL (1.6-2.6) H 06/18/16 03:45 Total Bilirubin 2.2 mg/dL (0.2-1.2) H D 06/18/16 03:45 Direct Bilirubin 0.7 mg/dL (0.0-0.5) H 06/16/16 22:56 AST 2893 Units/L (5-34) H 06/18/16 03:45 ALT 1243 Units/L (0-55) H 06/18/16 03:45 Alkaline Phosphatase 196 Units/L (38-126) H 06/18/16 03:45 B-Natriuretic Peptide 939 pg/mL (0-100) H 06/18/16 03:45 Serum Total Protein 5.9 g/dL (6.0-8.3) L 06/18/16 03:45 Albumin 2.2 g/dL (3.5-5.0) L 06/18/16 03:45 Globulin 3.7 g/dL (2.4-3.5) H 06/18/16 03:45 Albumin/Globulin Ratio 0.6 (1.1-2.2) L 06/18/16 03:45 Beta-Hydroxybutyric Acd 1.24 mmol/L (0.02-0.27) H 06/17/16 01:19 Urine Clarity Turbid (Clear) A 06/16/16 23:43 Urine Protein 100 mg/dL (Neg-Trace) H 06/16/16 23:43 Urine Glucose (UA) 500 mg/dL (Normal) H 06/16/16 23:43 Urine Ketones Trace mg/dL (Negative) H 06/16/16 23:43 Urine Blood Large (Negative) H 06/16/16 23:43 Ur Leukocyte Esterase Large (Negative) H 06/16/16 23:43 Urine Microscopic WBC TNTC per hpf (0-3) H 06/16/16 23:43 Ur Squamous Epith Cells Many per lpf (None-Few) H 06/16/16 23:43 Amorphous Sediment Moderate (Few) H 06/16/16 23:43 Urine Bacteria Many per hpf (None-Few) H 06/16/16 23:43 Enterobacteriac sp PCR DETECTED (Not Detect) A 06/16/16 23:01 E. coli (PCR) DETECTED (Not Detect) A 06/16/16 23:01 - Clinical Findings Intake & Output: Intake & Output 06/17/16 06/18/16 06/18/16 23:59 07:59 15:59 Intake Total 906.0 / 906.0 2401.5 / 2401.5 1250 / 1250 Output Total 375 / 375 25 / 25 Balance 531.0 / 531.0 2376.5 / 2376.5 1250 / 1250 Weight 122 kg - VTE Documentation of Mechanical Device: Intermittent pneumatic compression device Consult Discharge Plan - Plan Referrals: Bharti Jenkins MD [Primary Care Provider] - (Web requested 06-17-16)
[2016-06-18] MEDS: Chlorhexidine Rinse 15 ML MOUTHWASH MM SCH ×2 (09:53→22:18)
[2016-06-18] MEDS: Levothyroxine 25 MCG TABLET PO SCH (09:53)
[2016-06-18] MEDS: Aspirin 81 MG TAB.CHEW PO SCH (09:53)
[2016-06-18] MEDS: Anastrozole 1 MG TABLET PO SCH (09:53)
--- NOTE | 2016-06-18 09:57 | Nephrology Consult Note ---
Date of Encounter: 06/18/16 Time of Encounter: 09:55 Assessment and Plan (1) TISH (acute kidney injury) Current Visit: Yes Status: Acute The patient has acute kidney injury in the setting of gram-negative sepsis related to urinary tract infection with a right ureteral stone and hydronephrosis. Her situation is complicated by hyperkalemia and worsening metabolic acidosis. She currently is in septic shock. We will proceed with continuous renal replacement therapy to provide treatment for hyperkalemia and metabolic acidosis and azotemia. (2) Urinary tract infection Current Visit: Yes Status: Acute Qualifiers: Urinary tract infection type: site unspecified Hematuria presence: with hematuria Qualified Code(s): N39.0 - Urinary tract infection, site not specified; R31.9 - Hematuria, unspecified (3) Severe sepsis Current Visit: Yes Status: Acute (4) Non-sustained ventricular tachycardia Current Visit: Yes Status: Acute (5) Bacteremia due to Gram-negative bacteria Current Visit: Yes Status: Acute (6) Ureteral stone Current Visit: Yes Status: Acute History of Present Illness - History of Present Illness This is a 61-year-old female who presented to the emergency room after several days of weakness and mental status changes. Patient has been diagnosed with sepsis and bacteremia. Urine cultures and blood cultures are growing gram- negative rods. CT scan of the abdomen shows right hydronephrosis as well as right hydroureter and the presence of a ureteral stone. Patient says has developed acute kidney injury, dictated by hyperkalemia. She also has severe metabolic acidosis related to lactic acidosis because of the sepsis. Nephrology has been consulted because of oliguria. Worsening renal function progressively hyperkalemia and metabolic acidosis. Past Med Surg Social Fam HX - Past Medical History Medical history: diabetes, hyperlipidemia, hypertension, thyroid disease, other - Past Surgical History Surgical History: no surgical history - Social History Smoking Status: Never smoker Alcohol use: none Drug use: none - Family History Mother Hx Family Cardiac Disorders: Yes Hx Family Endocrine Disorder: Yes (diabetes) Father Hx Family Endocrine Disorder: Yes (diabetes) Sister Hx Family Endocrine Disorder: Yes (diabetes) Medications and Allergies Anastrozole [Arimidex] 1 mg PO DAILY 06/17/16 [History] GlyBURIDE [GlyBURIDE] 5 mg PO BID 06/17/16 [History] Insulin Glargine,Hum.rec.anlog [Lantus Solostar] 35 unit SQ QAM 06/17/16 [ History] Insulin Glargine,Hum.rec.anlog [Lantus Solostar] 40 unit SQ QPM 06/17/16 [ History] Levothyroxine [Synthroid] 25 mcg PO DAILY 06/17/16 [History] Liraglutide [Victoza 2-Jacinto] 0.6 mg SQ DAILY 06/17/16 [History] Lisinopril [Zestril] 10 mg PO DAILY 06/17/16 [History] Metformin HCl [Glucophage] 1,000 mg PO BID 06/17/16 [History] Simvastatin [Zocor] 20 mg PO HS 06/17/16 [History] Spironolactone [Aldactone] 25 mg PO DAILY 06/17/16 [History] Venlafaxine HCl [Venlafaxine HCl ER] 150 mg PO DAILY 06/17/16 [History] Allergies No Known Allergies Allergy (Verified 06/16/16 22:01) Review of Systems ROS unobtainable: due to endotracheal tube Exam - Vital Signs Vital signs: Initial Vital Signs Temp Pulse Resp BP Pulse Ox 99.5 F 143 36 125/68 93 06/16/16 21:54 06/16/16 21:54 06/16/16 21:54 06/16/16 21:54 06/16/16 21:54 Vital Signs - Last 8 Hours Temp Pulse Resp BP Pulse Ox 06/18/16 09:40 16 116/74 94 06/18/16 09:00 120 15 115/65 94 06/18/16 08:52 14 94 06/18/16 08:00 113 15 114/74 94 06/18/16 07:25 98.7 F 113 15 107/65 95 06/18/16 06:20 12 98 06/18/16 06:00 85 18 102/57 97 06/18/16 05:16 98 18 95/61 96 06/18/16 04:45 12 98 06/18/16 04:00 100 21 89/64 96 06/18/16 03:31 24 99 06/18/16 03:30 98 06/18/16 03:20 102 24 118/77 96 06/18/16 02:34 106 27 106/69 100 04/28/17 02:15 25 94 Intake and Output 04/27/17 04/28/17 04/28/17 23:59 07:59 15:59 Intake Total 906.0 / 906.0 2401.5 / 2401.5 1250 / 1250 Output Total 375 / 375 / 25 Balance 531.0 / 531.0 2376.5 / 2376.5 1250 / 1250 Intake: IV Fluids 306.0 / 306.0 2401.5 / 2401.5 1250 / 1250 0.9 % Sodium Chloride 1, 1000 / 1000 000 ML @ 3750 mls/hr IVC .Q16M ONE Rx#:[id number] Amiodarone 360mg/200mL 200 / 200 Drip Premix 360 mg In 200 ml @ 0.5 MG/MIN 16.667 mls/hr IVC CONT DIOR Rx#: [id number] HumuLIN R 100 UNIT In 0. 106.0 / 106.0 51.5 / 51.5 9 % Sodium Chloride 100 ML @ 12.5 UNIT/HR 12.62 mls/hr IVC CONT DIOR Rx#: [id number] Levophed 4 MG In Dextrose 250 / 250 250 / 250 5% 250 ML @ 5 MCG/MIN 18 .75 mls/hr IVC .CONT DIOR Rx#:[id number] Sodium Bicarbonate 100 1000 / 1000 MEQ In 0.45% Sodium Chloride 1000 Ml 1000 Ml 1,000 ML @ 125 mls/hr IVC .Q8H48M DIOR Rx#: [id number] ALBURX 5% 12.5 gm In 250 500 / 500 ml @ 60 mls/hr IVPB ONCE ONE Rx#:[id number] Zosyn 3.375 GM In 100 / 100 100 / 100 Dextrose 5% (Minibag+) 100 ML 100 ML @ 25 mls/hr IVPB Q8HR DIOR Rx#: [id number] Potassium Chloride 10 mEq 100 / 100 300 / 300 /100mL 10 meq In 100 ml @ 100 mls/hr IVPB Q1H PRN Rx#:[id number] Oral 600 / 600 Output: Catheter 375 / 375 25 / 25 Other: # Bowel Movements 0 Weight 122 kg Blood Glucose* 299 145 198 - General Appearance Exam: The patient is seen and examined in the intensive care unit. She is currently on the ventilator. She is on levo fed at 30 mics per minute for blood pressure support. She has a temporary dialysis line placed in the left internal jugular vein. Lungs diminished breath sounds. Heart regular rate and rhythm with a 2/ 6 soft ejection murmur. Abdomen is protuberant. Bowel sounds are diminished. Abdomen is soft. There is no guarding or rigidity. There is minimal lower extremity swelling. Results - Lab Results 06/18/16 03:45 06/18/16 03:45 Most recent lab results ABG pH 7.10 pH Units (7.32-7.45) L* D 06/18/16 03:24 ABG pCO2 34 mmHg (35-45) L 06/18/16 03:24 ABG pO2 86 mmHg (85-104) 06/18/16 03:24 ABG HCO3 10.6 mEQ/L (21-27) L 06/18/16 03:24 ABG O2 Saturation 92 % (95-98) L 06/18/16 03:24 Calcium 7.4 mg/dL (8.6-10.8) L 06/18/16 03:45 Phosphorus 7.6 mg/dL (2.3-4.7) H D 06/18/16 03:45 Magnesium 3.3 mg/dL (1.6-2.6) H 06/18/16 03:45 Consult Discharge Plan - Plan Referrals: Bharti Jenkins MD [Primary Care Provider] - (Web requested 06-17-16)
[2016-06-18] MEDS ORDERED: *HR* Heparin 5,000 UNIT/ML VIAL IV PRN (09:58)
--- NOTE | 2016-06-18 10:05 | Urology Procedure Note ---
Date of Encounter: 06/18/16 Time of Encounter: 10:03 Procedures:Urology - Cystoscopy Additional comments: Under sterile conditions, flexible cystoscopy was performed. A zip wire was placed up the right ureteral orifice into the kidney. XRay images were obtained to confirm placement. The stent did not pass easily. A 5 Sinhala open ended catheter was advanced into the kidney. This was then removed. This moved the stone a bit and allowed a 6 Sinhala x 26cm JJ stent to be passed into the kidney with a good curl seen in the kidney and the bladder. The wire was removed. A Tyson catheter was reinserted.
[2016-06-18] MEDS ORDERED: Calcium Gluconate 2,700 MG in PrismaSATE BGK 2/0 5,000 ML IVPB SCH (10:30)
--- NOTE | 2016-06-18 10:49 | Cardiology Consult Note ---
Date of Encounter: 06/18/16 Time of Encounter: 10:49 Assessment and Plan (1) Atrial fibrillation with RVR Current Visit: Yes Status: Acute New onset Afib with RVR in the setting of septic shock No prior history of Afib Not currently a candidate for CCB or Beta porsha due to hypotension and need for vasopressors Agree with amiodarone drip Not a good candidate for digoxin due to renal impairment and need for CRRT. Recommend medical management of septic shock and continue amiodarone drip Due to elevated INR and concern for development of DIC, do not recommend anticoagulation (2) Non-sustained ventricular tachycardia Current Visit: Yes Status: Acute Reviewed telemetry and EKG Multiple runs (>40) of nonsustained vtach (up to 13 beats) in the setting of septic shock, lactic acidosis, electrolyte abnormalities Agree with CRRT for potassium management Recommend medical management of septic shock, lactic acidosis, electrolyte derangement, renal failure. Agree with amiodarone drip while working on medical stabilization. Discussion w patient/family: The assessment and plan as outlined above was discussed with the patient and/or family members who expressed understanding and agreement. All questions were answered. Thank you for involving us in the care of your patient. Please call with any questions. History of Present Illness Consult date: 06/18/16 Consult reason: Vtach and new onset Afib RVR Chief complaint: AMS History of present illness: Ms. Lomax is a 61 year old female who was admitted due to AMS. Was found to have urosepsis secondary to UTI with obstructive uropathy. She developed sepsis with subsequent lactic acidosis, respiratory failure, TISH with hyperkalemia, electrolyte derangement, and transaminitis. She was found to have multiple episodes of non sustained Vtach. In reviewing her history she does not have a known history of CAD. No LHC's seen in the records. She is intubated and sedated and family is not at bedside so history is limited. She has a PMH of DM, Hypothyroid, HLD, HTN. Past Med Surg Social Fam HX - Past Medical History Medical history: diabetes, hyperlipidemia, hypertension, thyroid disease, other - Past Surgical History Surgical History: no surgical history - Social History Smoking Status: Never smoker Alcohol use: none Drug use: none - Family History Mother Hx Family Cardiac Disorders: Yes Hx Family Endocrine Disorder: Yes (diabetes) Father Hx Family Endocrine Disorder: Yes (diabetes) Sister Hx Family Endocrine Disorder: Yes (diabetes) Medications and Allergies Anastrozole [Arimidex] 1 mg PO DAILY 06/17/16 [History] GlyBURIDE [GlyBURIDE] 5 mg PO BID 06/17/16 [History] Insulin Glargine,Hum.rec.anlog [Lantus Solostar] 35 unit SQ QAM 06/17/16 [ History] Insulin Glargine,Hum.rec.anlog [Lantus Solostar] 40 unit SQ QPM 06/17/16 [ History] Levothyroxine [Synthroid] 25 mcg PO DAILY 06/17/16 [History] Liraglutide [Victoza 2-Jacinto] 0.6 mg SQ DAILY 06/17/16 [History] Lisinopril [Zestril] 10 mg PO DAILY 06/17/16 [History] Metformin HCl [Glucophage] 1,000 mg PO BID 06/17/16 [History] Simvastatin [Zocor] 20 mg PO HS 06/17/16 [History] Spironolactone [Aldactone] 25 mg PO DAILY 06/17/16 [History] Venlafaxine HCl [Venlafaxine HCl ER] 150 mg PO DAILY 06/17/16 [History] Allergies No Known Allergies Allergy (Verified 06/16/16 22:01) ROS unobtainable: due to endotracheal tube, due to mental status All Systems Review: A 10-system review of systems was performed and is negative for pertinent findings except as documented above in the HPI. Physical Examination Vital Signs, Last 4 Hours Temp Pulse Resp BP Pulse Ox 06/18/16 10:00 115 15 120/70 95 06/18/16 09:40 16 116/74 94 06/18/16 09:00 120 15 115/65 94 06/18/16 08:52 14 94 06/18/16 08:00 113 15 114/74 94 06/18/16 07:25 98.7 F 113 15 107/65 95 General: Conversant HEENT: Atraumatic Cardiac: Other (tachycardia with irregular rhythm) Lungs: Other (expiratory wheezes bilaterally. MEchanically ventilated) Abdomen: Soft Skin: No rashes noted on visualized skin, Other (Cool to the touch) Extremities: Other (mild bilateral LE edema) Results 06/18/16 03:45 04/28/17 03:45 Lab Results 06/17/16 06/17/16 06/17/16 10:04 20:27 20:27 WBC Hgb Hct Plt Count INR APTT D-Dimer Sodium 135 L Potassium 3.9 Chloride 104 Carbon Dioxide 16 L BUN 43 H Creatinine 2.20 H Glucose 337 H Calcium 7.6 L Magnesium 2.7 H Total Bilirubin AST ALT Alkaline Phosphatase Troponin I 0.03 B-Natriuretic Peptide TSH 1.400 06/17/16 06/17/16 06/18/16 20:27 20:27 03:45 WBC 17.0 H D 19.4 H Hgb 10.3 L 10.5 L Hct 31.5 L 32.4 L Plt Count 90 L 83 L INR APTT D-Dimer Sodium 130 L Potassium 3.8 Chloride 100 Carbon Dioxide 13 L BUN 52 H Creatinine 2.44 H Glucose 423 H Calcium 7.8 L Magnesium Total Bilirubin AST ALT Alkaline Phosphatase Troponin I B-Natriuretic Peptide TSH 06/18/16 06/18/16 06/18/16 03:45 03:45 03:45 WBC Hgb Hct Plt Count INR 1.5 APTT 25.8 L D-Dimer 51246 H Sodium 134 L Potassium 6.3 H D Chloride 102 Carbon Dioxide 9 L* BUN 55 H Creatinine 2.80 H Glucose 129 H Calcium 7.4 L Magnesium 3.3 H Total Bilirubin 2.2 H D AST 2893 H ALT 1243 H Alkaline Phosphatase 196 H Troponin I B-Natriuretic Peptide 939 H TSH Consult Discharge Plan - Plan Referrals: Bharti Jenkins MD [Primary Care Provider] - (Web requested 06-17-16)
[2016-06-18] MEDS: 0.9 % Sodium Chloride 1,000 ML PRIME SCH ×2 (11:54→13:30)
[2016-06-18] MEDS: Hydrocortisone Sodium Succ 100 MG/2 ML VIAL IVP SCH ×3 (12:31→23:13)
--- NOTE | 2016-06-18 13:10 | ECHO - Doppler Report ---
Echocardiogram Name: Delia Lomax Date of Study: 06/18/2016 Date: 1955 Ht: 65.0 in Medical Record#: [id number] Age: 61 Wt: 268.0 lb Gender: Female BSA: 2.24 Order #: [id number] Location: [facility] Room #: ICU11 Reading Physician: Eddi Chen DO, ALEJANDRA MERRITT Commission Sales Associate: Twin Palafox RN Ordering Physician: Ananth Seymour DO Primary Physician: Bharti Jenkins MD Indications: Arrhythmia Impressions: LVEF 35-40%. Normal LV chamber size and wall thickness. Moderate LV global hypokinesis in the setting of tachycardia. Atypical septal motion of unclear etiology. Normal right ventricular structure and function. Indeterminate diastolic function. No evidence of pulmonary hypertension identified. RVSP could be underestimated. Recommend a repeat study to evaluate LV function when HR better controlled. Left Ventricular Wall Motion: Rest Echo Findings The apex, apical inferior, mid inferior, basal inferior, apical anterior, mid anterior, basal anterior, apical septal, mid inferior septal, basal inferior septal, apical lateral, mid anterior lateral, basal anterior lateral, mid anterior septal, mid inferior lateral, basal anterior septal and basal inferior lateral amador were hypokinetic. Findings: Study Quality * Technically sub-optimal due to clinical status. ECG Findings * Difficult to determine rhythm. Tachycardia noted. Left Ventricle * LVEF 35-40%. * Normal LV chamber size and wall thickness. Moderate LV global hypokinesis in the setting of tachycardia. * Indeterminate diastolic function. * Atypical septal motion of unclear etiology. Right Ventricle * Grossly normal right ventricular structure and function. Left Atrium * Mild to moderately dilated left atrium. Right Atrium * Mildly dilated right atrium. Interatrial Septum * Interatrial septum not well evaluated. Aortic Valve * Trileaflet aortic valve with normal function. * No aortic regurgitation. * No aortic stenosis. Mitral Valve * Normal mitral valve structure and function. * No mitral stenosis. * Trace mitral regurgitation. Tricuspid Valve * Normal tricuspid valve structure and function. * Trace tricuspid regurgitation. * No evidence of pulmonary hypertension identified. RVSP could be underestimated. Pulmonic Valve * Pulmonic valve not well visualized. * No pulmonic regurgitation. Aorta * Normally sized aortic root. Pericardium * The pericardium appears normal. IVC * The IVC is not dilated. Pulmonary Artery * Normal visualized portions of the main pulmonary artery. History Hypertension Diabetes Hypercholesteremia Measurements: BP: 102/ 57 2D Normal Values RVIDd: 3.30 cm <2.7 cm IVSd: 1.10 cm 0.6 - 1.0 cm LVIDd: 4.90 cm 3.7 - 5.6 cm LVPWd: 1.10 cm 0.6 - 1.1 cm LVIDs: 3.90 cm 1.5 - 3.6 cm LA: 4.10 cm 2.0 - 4.0cm %FS: 20.40 cm >25 % LVOT Diam: 2.00 cm LA volume: 67 Mitral Valve Peak E:1.36 m/sec Peak E' Lat Max:10.5 cm/s Peak E' Med Max:7.7 cm/s E/E' Lat Ratio:13 E/E' Med Ratio:17.7 Tricuspid Valve TV Regurg Peak Grad: 24.00mmHg TV Regurg Peak Max: 2.47m/sec Updated by Eddi Chen DO, FACSahara, JAYLENE ROBERTS on 06/18/2016 1:02:46 PM electronically signed on 06/18/2016 1:03:47 PM with status of Final Wall Motion Frazier: 1=Normal, 2=Hypokinesis, 3=Akinesis, 4=Dyskinesis, 5=Aneurysmal, 6=Hyperkinetic, X=Not Visualized (Blank)=Missing
--- NOTE | 2016-06-18 13:16 | Event Note ---
Date of Encounter: 06/18/16 Time of Encounter: 07:30 Patient examined, chart and all data reviewed as well as recent imaging studies. Overnight, the patient's respiratory status precipitously declined and she was intubated. Patient also developed fulminant septic shock necessitating institution of moderate to high doses of vasopressor agent. Furthermore, the patient devloped oligoanuria accompanied by severe metabolic acidosis and hyperkalemia. Examination reveals an obese female she is sedated and orally intubated. She is minimally responsive to noxious stimuli, vitals reviewed. Head normocephalic eyes the pupils were reactive. Patient is orally intubated. Neck exam supple. Chest exam, coarse breath sounds bilaterally. Cardiac exam irregular rate and rhythm (note atrial fibrillation per monitor). Abdominal exam soft nontender bowel sounds are noted. Her extremities were cool to touch pulses were intact. She has extremity mottling mild cyanosis. Skin exam otherwise unremarkable. Limited neurologic exam does not allow full evaluation however the patient reportedly with reduction sedation does move spontaneously. All laboratory data reviewed and of note, this patient has profound lactic acidosis, worsening renal function transaminitis likely due to shock liver. Blood cultures as well as urine culture revealed growth of Escherichia coli sensitivities are pending. Impressions #1 septic shock secondary to urinary tract infection #2 Escherichia coli bacteremia and urinary tract infection with radiographic evidence of right hydronephrosis by obstructing stone #3 acute respiratory failure with hypoxia secondary to septic shock #4 acute kidney injury hemodynamically mediated ATN due to septic shock #5 shock liver secondary to profound hypoperfusion #6 thrombocytopenia likely secondary to sepsis (no evidence to support DIC at this time in light of greatly elevated fibrinogen level). Aside from continuation of Richard fed, vasopressin will be added as well as replacement doses of systemic steroids. She will require continuous renal replacement therapy in light of anterior worsening renal function profound acidosis and hyperkalemia nephrology (Dr. Ruiz) will be consulted. Given hydronephrosis and for source control of urinary infection and bacteremia, urology has been consulted for possible placement of stent (versus IR for percutaneous nephrostomy tube placement). This patient is extremely and has a very high mortality rate in excess of 50% based on her current circumstances as well as multisystem organ failure due to septic shock. Patient required 35 minutes of critical care time independently of time necessary for procedures which was devoted to the dedicated management of mechanical ventilatory support for acute respiratory failure and adjustment/ titration of pressor agents given hemodynamic instability secondary to septic shock. This time also included the time devoted to spouse update regarding the severity of his 's high mortality rate. E Cordasco [phone]
--- NOTE | 2016-06-18 13:42 | Procedure Note ---
Date of procedure: 06/18/16 Pre-op diagnosis: Acute renal failure Post-op diagnosis: same Procedure: Left IJ placement of temporary HD catheter A time-out was completed verifying correct patient, procedure, site, positioning , and equipment. The patient was placed in a dependent position appropriate for central line placement based on the left IJ vein to be cannulated. The patient s right neck and shoulder were prepped and draped in sterile fashion. No lidocaine was used as patient was sedated and ventilated. Prior to placement, each lumen of the catheter was evacuated of air and flushed with sterile saline. Venous access was visualized under ultrasound. Wire placement was confirmed under ultrasound. A triple lumen 15.5Fr x 15cm catheter was introduced into the the left internal jugular vein using the Seldinger technique. The catheter was threaded smoothly over the guide wire and appropriate blood return was obtained. The catheter was then sutured in place to the skin and a sterile dressing applied. Dr. Luna was present for the entire procedure. Post-procedure x-ray confirmed appropriate placement and the line was cleared for use by nursing. Estimated Blood Loss: 5mL The patient tolerated the procedure well and there were no complications. Anesthesia: IV sedation Surgeon: Donell Salter Head Coach: Fred Luna Estimated blood loss (cc): 5 IV fluids (cc): 0 Urine output (cc): 0 Pathology: none sent Condition: critical Disposition: ICU
--- NOTE | 2016-06-18 13:49 | Procedure Note ---
Date of procedure: 06/18/16 Pre-op diagnosis: Hypotension requiring CVC placement for pressors Post-op diagnosis: same Procedure: Right internal jugular central venous catheter placement. Technique: A time out was preformed identifying the correct procedure, the correct location with the nursing staff. The right neck was prepped with 2% chlorhexidine and draped with a full length sterile sheet in the usual fashion. The right internal jugular vein was accessed under ultrasound guidance with an 18 gauge thin wall needle. A triple lumen was inserted via the seldinger technique. Blood was withdrawn from all lumens and flushed with normal saline. The catheter was sutured in place and a sterile dressing was applied over the site prior to removal of drapes. The patient tolerated the procedure well and there were no complications. Chest x ray demonstrated that the line was placed into the Right subclavian vein. Anesthesia: none Surgeon: Ananth Seymour Oracle Solutions Architect: Donell Salter Estimated blood loss (cc): 5 IV fluids (cc): 0 Urine output (cc): 0 Pathology: none sent Condition: critical Disposition: ICU
[2016-06-18] MEDS: Calcium Gluconate 2,700 MG in PrismaSATE BGK 2/0 5,000 ML IVPB SCH ×8 (15:41→22:19)
[2016-06-18] MEDS: Insulin Human Regular 100 UNIT in 0.9 % Sodium Chloride 100 ML IVC SCH (17:49)
[2016-06-18] MEDS ORDERED: Norepinephrine 4 MG in D5% in Water 250 ML IVC SCH (20:45)
[2016-06-18 20:49] LABS: Calcium 6.9 mg/dL (8.6-10.8)
[2016-06-18 20:50] LABS: Potassium 4.4 mEq/L (3.5-4.5)
[2016-06-18] MEDS: Phenylephrine 10 MG in D5% in Water 250 ML IVC SCH (21:51)
[2016-06-18] MEDS: Norepinephrine 8 MG in D5% in Water 250 ML IVC SCH (22:50)
[2016-06-19] MEDS: Levalbuterol Neb 1.25 MG/3 ML IH SCH ×3 (00:13→08:33)
[2016-06-19] MEDS: Ipratropium Neb 0.5 MG NEBULIZER IH SCH ×3 (00:13→08:33)
[2016-06-19] MEDS: Calcium Gluconate 2,700 MG in PrismaSATE BGK 2/0 5,000 ML IVPB SCH ×8 (01:09→09:00)
[2016-06-19 04:02] LABS: ABG Base Excess -11.5 mEq/L (-2.0 to 3.0); ABG HCO3 17.1 mEQ/L (21-27); ABG Oxygen Saturation 95 % (95-98); ABG PCO2 49 mmHg (35-45); ABG PO2 94 mmHg (85-104); ABG TCO2 18.6 mEq/L (20-26)
[2016-06-19 04:03] LABS: ABG PH 7.15 pH Units (7.32-7.45); Blood Gas FiO2 40 %; Hemoglobin 10.6 g/dL (11.5-15.4); Mean Corpuscular Hemoglobin 28.4 pg (28.0-33.3); Nucleated Red Blood Cells 0.5 /100 WBC (0); Red Blood Count 3.73 M/mcL (3.82-4.97); Red Cell Distribution Width 14.8 % (11.5-14.5)
[2016-06-19 04:05] LABS: Basophils % 0.2 %; Hematocrit 33.4 % (35.3-44.9); Immature Granulocytes % 1.2 % (0-4); Lymphocytes # 0.8 K/mcL (0.6-4.6); Lymphocytes % 6.2 %; Mean Corpuscular HGB Conc 31.7 g/dL (31.6-35.5); Mean Corpuscular Volume 89.5 fL (83.0-100.0); Mean Platelet Volume 11.5 fL (9.4-12.4); Monocytes # 1.1 K/mcL (0.0-1.3); Monocytes % 8.3 %; Neutrophils # 11.2 K/mcL (1.6-8.9); Segmented Neutrophils % 84.1 %
[2016-06-19 04:13] LABS: Platelet Count 39 K/mcL (140-400)
[2016-06-19 04:15] LABS: Magnesium 2.2 mg/dL (1.6-2.6); Phosphorous 7.4 mg/dL (2.3-4.7)
[2016-06-19 04:20] LABS: Ionized Calcium 0.79 mmol/L (1.15-1.35)
[2016-06-19 04:28] LABS: Albumin 2.2 g/dL (3.5-5.0); Albumin/Globulin Ratio 0.7 (1.1-2.2); Bilirubin,Indirect 1.7 mg/dL (0.0-1.2); Calcium 6.8 mg/dL (8.6-10.8); Globulin 3.3 g/dL (2.4-3.5); Phosphorous 7.3 mg/dL (2.3-4.7); Potassium 4.9 mEq/L (3.5-4.5); Total Protein 5.5 g/dL (6.0-8.3)
[2016-06-19 04:30] LABS: Bilirubin,Direct 2.6 mg/dL (0.0-0.5); Bilirubin,Total 4.3 mg/dL (0.2-1.2)
[2016-06-19 04:51] LABS: Large Platelets Present (Not Present); Platelet Estimate Decreased (Normal)
[2016-06-19] MEDS: Phenylephrine 10 MG in D5% in Water 250 ML IVC SCH (05:00)
[2016-06-19] MEDS: Insulin Human Regular 100 UNIT in 0.9 % Sodium Chloride 100 ML IVC SCH (05:00)
[2016-06-19] MEDS: 0.9 % Sodium Chloride 1,000 ML PRIME SCH ×3 (05:01→08:59)
[2016-06-19] MEDS: Lacri-Lube 3.5 GM TUBE BOTH EYES SCH ×2 (05:01→09:24)
[2016-06-19] MEDS: Hydrocortisone Sodium Succ 100 MG/2 ML VIAL IVP SCH (05:16)
[2016-06-19] MEDS: Vasopressin 20 UNIT in 0.9 % Sodium Chloride 50 ML IVC SCH ×2 (05:40→07:09)
[2016-06-19] MEDS: Amiodarone Premix 360 MG/200 ML BAG IVC SCH (06:00)
[2016-06-19] MEDS ORDERED: *HR* Heparin 5,000 UNIT/ML VIAL ONE (06:37)
--- NOTE | 2016-06-19 07:42 | Urology Progress Note ---
Date of Encounter: 06/19/16 Time of Encounter: 07:40 - Assessment and Plan (1) Ureteral stone Current Visit: Yes Status: Acute Assessment and plan: status post right ureteral stent. Appreciate critical care support. (2) Urinary tract infection Current Visit: Yes Status: Acute Assessment and plan: E. coli UTI and bacteremia. On zosyn. 1. Continue antbiotics. 2. will follow along. Qualifiers: Urinary tract infection type: site unspecified Hematuria presence: with hematuria Qualified Code(s): N39.0 - Urinary tract infection, site not specified; R31.9 - Hematuria, unspecified Progress Note Narrative: Intubated, sedated. S/p cysto, right ureteral stent placement. POD #1. UOP scant. Patient in critical condition. Objective Initial Vital Signs Temp Pulse Resp BP Pulse Ox 99.5 F 143 36 125/68 93 06/16/16 21:54 06/16/16 21:54 06/16/16 21:54 06/16/16 21:54 06/16/16 21:54 - General physical appearance Present: well developed, well nourished, no distress - Abdomen Present: soft - Genitourinary Urine Appearance: Present: Hematuria (scant.) - Labs 06/19/16 03:45 06/19/16 03:45 Diabetes panel 06/18/16 06/19/16 Range/Units 20:25 03:45 Sodium 136 136 (136-145) mEq/L Potassium 4.4 D 4.9 H (3.5-4.5) mEq/L Chloride 97 L 98 (98-109) mEq/L Carbon Dioxide 18 L 17 L (19-29) mEq/L BUN 50 H 46 H (7-20) mg/dL Creatinine 2.47 H 2.40 H (0.57-1.11) mg/dL Glucose 196 H 146 H (70-99) mg/dL Calcium 6.9 L 6.8 L (8.6-10.8) mg/dL AST 87578 H (5-34) Units/L ALT 4799 H (0-55) Units/L Alkaline Phosphatase 283 H (38-126) Units/L Albumin 2.2 L (3.5-5.0) g/dL Calcium panel 06/18/16 06/19/16 06/19/16 Range/Units 20:25 03:45 03:45 Calcium 6.9 L 6.8 L (8.6-10.8) mg/dL Phosphorus 7.4 H 7.3 H (2.3-4.7) mg/dL Albumin 2.2 L (3.5-5.0) g/dL Pituitary panel 06/18/16 06/19/16 Range/Units 20:25 03:45 Sodium 136 136 (136-145) mEq/L Potassium 4.4 D 4.9 H (3.5-4.5) mEq/L Chloride 97 L 98 (98-109) mEq/L Carbon Dioxide 18 L 17 L (19-29) mEq/L BUN 50 H 46 H (7-20) mg/dL Creatinine 2.47 H 2.40 H (0.57-1.11) mg/dL Glucose 196 H 146 H (70-99) mg/dL Calcium 6.9 L 6.8 L (8.6-10.8) mg/dL Adrenal panel 06/18/16 06/19/16 Range/Units 20:25 03:45 Sodium 136 136 (136-145) mEq/L Potassium 4.4 D 4.9 H (3.5-4.5) mEq/L Chloride 97 L 98 (98-109) mEq/L Carbon Dioxide 18 L 17 L (19-29) mEq/L BUN 50 H 46 H (7-20) mg/dL Creatinine 2.47 H 2.40 H (0.57-1.11) mg/dL Glucose 196 H 146 H (70-99) mg/dL Calcium 6.9 L 6.8 L (8.6-10.8) mg/dL Total Bilirubin 4.3 H D (0.2-1.2) mg/dL AST 65574 H (5-34) Units/L ALT 4799 H (0-55) Units/L Alkaline Phosphatase 283 H (38-126) Units/L Albumin 2.2 L (3.5-5.0) g/dL - VTE Documentation of Mechanical Device: Intermittent pneumatic compression device Consult Discharge Plan - Plan Referrals: Bharti Jenkins MD [Primary Care Provider] - (Web requested 06-17-16)
--- NOTE | 2016-06-19 08:59 | Nephrology Progress Note ---
Date of Encounter: 06/19/16 Time of Encounter: 08:40 - Assessment and Plan (1) TISH (acute kidney injury) Current Visit: Yes Status: Acute The patient has TISH in the setting of gram-negative sepsis related to urinary tract infection with a right ureteral stone and hydronephrosis. S/P ureteral stent. Hyperkalemia and metabolic acidosis improved. Remains on two pressors. Will continue continuous renal replacement. Staff has had clotting of system. will add Cslcium Citrate. Subjective Principal diagnosis: Septic shock Interval history: Intubated/sedated on two pressors. Objective - Vital Signs Vital signs: Vital Signs Temp Pulse Resp BP Pulse Ox 06/19/16 08:34 16 94 06/19/16 08:00 97.4 F L 109 15 86/60 91 06/19/16 07:00 109 16 83/58 94 06/19/16 06:29 17 77/53 91 06/19/16 06:00 97.5 F L 114 15 76/54 94 06/19/16 05:00 111 15 94/63 95 06/19/16 04:37 19 88/62 96 06/19/16 04:00 97.6 F 103 12 88/60 96 06/19/16 03:50 103 06/19/16 03:00 112 13 86/57 95 06/19/16 02:51 15 84/57 96 06/19/16 02:00 97.5 F L 110 13 86/59 96 06/19/16 01:00 105 12 81/56 95 06/19/16 00:14 12 121/81 99 06/19/16 00:00 96.2 F L 108 12 72/54 98 06/18/16 23:34 112 06/18/16 23:00 95.0 F L 108 12 95/65 99 06/18/16 22:33 13 83/61 95 06/18/16 22:00 113 13 95/66 95 06/18/16 21:00 111 12 97/67 98 06/18/16 20:00 94.4 F L 100 12 104/70 89 06/18/16 19:40 12 110/16 92 06/18/16 19:35 100 06/18/16 19:00 107 13 107/75 98 06/18/16 18:00 113 12 107/75 98 06/18/16 17:06 13 110/73 100 06/18/16 17:00 112 15 107/72 100 06/18/16 16:00 97.5 F L 94 12 113/78 100 06/18/16 15:58 12 108/73 100 06/18/16 15:00 94 15 94/68 100 06/18/16 14:00 107 17 93/56 100 06/18/16 13:56 17 94/58 100 06/18/16 13:00 118 13 103/61 97 06/18/16 12:00 99 F 112 15 124/79 95 06/18/16 11:10 15 118/73 95 06/18/16 11:00 112 12 121/74 95 06/18/16 10:00 115 15 120/70 95 06/18/16 09:40 16 116/74 94 06/18/16 09:00 120 15 115/65 94 Intake and Output 06/18/16 06/19/16 06/19/16 23:59 07:59 15:59 Intake Total 1108.2 / 1108.2 535 / 535 Output Total 1202 / 1202 573 / 573 0 / 0 Balance -93.8 / -93.8 -38 / -38 0 / 0 Intake: IV Fluids 1108.2 / 1108.2 535 / 535 Amiodarone 360mg/200mL 267 / 267 132 / 132 Drip Premix 360 mg In 200 ml @ 0.5 MG/MIN 16.667 mls/hr IVC CONT DIOR Rx#: [id number] FentaNYL (PF) 1,000 MCG 107 / 107 26 / 26 In 0.9 % Sodium Chloride 80 ML @ 50 MCG/HR 5 mls/ hr IVC CONT DIOR Rx#: [id number] HumuLIN R 100 UNIT In 0. 69.6 / 69.6 37 / 37 9 % Sodium Chloride 100 ML @ 12.5 UNIT/HR 12.62 mls/hr IVC CONT DIOR Rx#: [id number] Versed 50 MG In 0.9 % 22 / 22 8 / 8 Sodium Chloride 90 ML @ 2 MG/HR 4 mls/hr IVC CONT DIOR Rx#:[id number] Levophed 8 MG In Dextrose 471 / 471 200 / 200 5% 250 ML @ 14 MCG/MIN 27.09 mls/hr IVC .CONT DIOR Rx#:[id number] Vasostrict 20 UNIT In 0.9 71.6 / 71.6 32 / 32 % Sodium Chloride 50 ML @ 0.03 UNITS/MIN 4.59 mls /hr IVC .Q11H7M DIOR Rx#: [id number] Calcium Gluconate 2,700 0 / 0 0 / 0 MG In PrismaSATE BGK 2/0 5,000 ML @ 2000 mls/hr IVPB .Q2H31M DIOR Rx#: [id number] Zosyn 3.375 GM In 100 / 100 100 / 100 Dextrose 5% (Minibag+) 100 ML 100 ML @ 25 mls/hr IVPB Q8HR DIOR Rx#: [id number] Output: Gastric Tube Lavage 0 / 0 0 / 0 0 / 0 Amount Oral 0 / 0 0 / 0 0 / 0 Sailaja 1054 / 1054 523 / 523 0 / 0 Catheter 48 / 48 50 / 50 0 / 0 Gastric Drainage 100 / 100 0 / 0 Other: Blood Glucose* 176 124 109 - General Appearance General appearance: Present: well-developed, well-nourished, appears started age EENT: Present: mucous membranes moist Neck: Present: no JVD Respiratory: Present: clear Additional Comments: diminished Cardiology: Present: edema, irregular rhythm Additional Comments: generalized, non pitting Gastrointestinal: Present: hypoactive bowel sounds, obese, distended Integumentary: Present: warm and dry Additional Comments: LE mottling - Lab 06/19/16 03:45 06/19/16 03:45 Most recent lab results ABG pH 7.15 pH Units (7.32-7.45) L* 06/19/16 03:45 ABG pCO2 49 mmHg (35-45) H 06/19/16 03:45 ABG pO2 94 mmHg (85-104) 06/19/16 03:45 ABG HCO3 17.1 mEQ/L (21-27) L 06/19/16 03:45 ABG O2 Saturation 95 % (95-98) 06/19/16 03:45 Calcium 6.8 mg/dL (8.6-10.8) L 06/19/16 03:45 Phosphorus 7.3 mg/dL (2.3-4.7) H 06/19/16 03:45 Magnesium 2.2 mg/dL (1.6-2.6) 06/19/16 03:45 - VTE Documentation of Mechanical Device: Intermittent pneumatic compression device Consult Discharge Plan - Plan Referrals: Bharti Jenkins MD [Primary Care Provider] - (Web requested 06-17-16)
[2016-06-19] MEDS ORDERED: EPINEPHrine 1 MG in D5% in Water 250 ML IVC SCH (09:00)
[2016-06-19] MEDS: Norepinephrine 8 MG in D5% in Water 250 ML IVC SCH (09:01)
[2016-06-19] MEDS: Chlorhexidine Rinse 15 ML MOUTHWASH MM SCH (09:23)
[2016-06-19] MEDS: Aspirin 81 MG TAB.CHEW PO SCH (09:25)
--- NOTE | 2016-06-19 09:26 | Pulmonology Progress Note ---
Date of Encounter: 06/19/16 Time of Encounter: 08:20 Assessment and Plan (1) Acute respiratory failure with hypoxia Current Visit: Yes Status: Acute Acute respiratory failure with hypoxia secondary to septic shock. Septic shock in this individual is secondary to gram-negative bacteremia due to urinary infection. Continue full ventilatory support. Code(s): J96.01 - Acute respiratory failure with hypoxia SNOMED Code(s): 28631118, 982159393 (2) Sepsis due to Gram-negative organism with septic shock Current Visit: Yes Status: Acute Patient has documented Escherichia coli bacteremia and suffers from septic shock with multisystem organ failure due to the same. The patient was discovered to have right hydronephrosis secondary to lithiasis for which the patient underwent stent placement by urology at the bedside yesterday. Escherichia coli identification reveals a pansensitive organism and hence antibiotic therapy was D escalated to high-dose Rocephin. Patient currently requires 2 pressors and additionally may require a third pressor given persistent hypotension. The patient is also receiving systemic steroids. Furthermore, given oligo anuria renal failure and profound acidemia, continuous renal replacement therapy is also being provided for the patient. Given this patient's current clinical status, it is my estimation that her mortality exceeds 60-70%. Patient required 36 minutes of critical care time as provided by myself today. The time was spent at the bedside in the evaluation and management of acute respiratory failure with hypoxia (mechanical ventilatory support) and septic shock. Code(s): A41.50 - Gram-negative sepsis, unspecified; R65.21 - Severe sepsis with septic shock SNOMED Code(s): 203379038 (3) TISH (acute kidney injury) Current Visit: Yes Status: Acute Patient suffers from a hemodynamically mediated ATN as the etiology of AK I. Continue continuous renal replacement therapy per nephrology service. Code(s): N17.9 - Acute kidney failure, unspecified SNOMED Code(s): 69193251 (4) Atrial fibrillation with RVR Current Visit: Yes Status: Acute Atrial fibrillation is currently rate controlled with amiodarone infusion. Atrial fibrillation in this particular individual is likely due to her critical illness. Continue current medical measures Code(s): I48.91 - Unspecified atrial fibrillation SNOMED Code(s): 627296643767640 (5) Thrombocytopenia Current Visit: Yes Status: Acute Thrombocytopenia secondary to sepsis. His unlikely that this is reflective of an adverse reaction antibiotics or to heparin exposure. Furthermore, there is no evidence to support a diagnosis of DIC. Heparin subcutaneous will be discontinued at this time. Thrombocytopenia will be monitored. There is currently no evidence to support clinical bleeding. Code(s): D69.6 - Thrombocytopenia, unspecified SNOMED Code(s): 174710860 Subjective Principal diagnosis: Septic shock Interval history: The patient requires full mechanical ventilatory support, and dual pressor agents in order to maintain an acceptable blood pressure. Is also currently requiring continuous renal replacement therapy given oligo anuretic renal failure secondary to septic shock and hyperkalemia and severe metabolic acidosis. Overnight, no acute new issues were reported. Objective PUL Vital signs: Last Vital Signs Temp 97.4 F L 06/19/16 08:00 Pulse 109 06/19/16 08:00 Resp 16 06/19/16 08:34 BP 86/60 06/19/16 08:00 Pulse Ox 94 06/19/16 08:34 General appearance: other (Sedated, minimally responsive with oxidation- reduction per discussion with nursing staff) Eyes: nonicteric ENT: other (Orally intubated) Neck: other (Right and left central venous lines) Auscultation: bilateral: diminished breath sounds Cardiovascular: irregular rhythm (Faint apical systolic murmur) Gastrointestinal: normoactive bowel sounds, non-distended, other (Minimal bowel sounds were noted) Integumentary: other (Note absence a rash however fairly extensive livedo reticularis) Extremities: other (The extremities are cool to touch and cyanotic, pulses are intact however. Moderate extremity edema is also noted.) unable to assess due to mental status Ventilator Settings Ventilator Settings: Ventilator Settings, Last 8 Hours Ventilator Mode A/C Ventilator Mode A/C Ventilator Mode A/C Ventilator Mode A/C Ventilator Mode A/C Ventilator Mode A/C Ventilator Mode A/C Ventilator Mode A/C Ventilator Mode A/C Ventilator Mode A/C Ventilator Mode A/C Ventilator Mode A/C Ventilator Tidal Volume 500 Setting Ventilator Tidal Volume 500 Setting Ventilator Tidal Volume 500 Setting Ventilator Tidal Volume 500 Setting Ventilator Tidal Volume 500 Setting Ventilator Tidal Volume 500 Setting Ventilator Tidal Volume 500 Setting Ventilator Tidal Volume 500 Setting Ventilator Tidal Volume 500 Setting Ventilator Tidal Volume 500 Setting Ventilator Tidal Volume 500 Setting Ventilator Tidal Volume 500 Setting Ventilator Respiratory Rate 12 Setting Ventilator Respiratory Rate 12 Setting Ventilator Respiratory Rate 12 Setting Ventilator Respiratory Rate 12 Setting Ventilator Respiratory Rate 12 Setting Ventilator Respiratory Rate 12 Setting Ventilator Respiratory Rate 12 Setting Ventilator Respiratory Rate 12 Setting Ventilator Respiratory Rate 12 Setting Ventilator Respiratory Rate 12 Setting Ventilator Respiratory Rate 12 Setting Ventilator Respiratory Rate 12 Setting Actual Respiratory Rate 15 Actual Respiratory Rate 15 Actual Respiratory Rate 17 Actual Respiratory Rate 17 Actual Respiratory Rate 15 Actual Respiratory Rate 15 Actual Respiratory Rate 15 Actual Respiratory Rate 15 Actual Respiratory Rate 13 Actual Respiratory Rate 12 Actual Respiratory Rate 12 Positive End Expiratory 5 Pressure Positive End Expiratory 5 Pressure Positive End Expiratory 5 Pressure Positive End Expiratory 5 Pressure Positive End Expiratory 5 Pressure Positive End Expiratory 5 Pressure Positive End Expiratory 5 Pressure Positive End Expiratory 5 Pressure Positive End Expiratory 5 Pressure Positive End Expiratory 5 Pressure Positive End Expiratory 5 Pressure Positive End Expiratory 5 Pressure Peak Inspiratory Airway 20 Pressure Peak Inspiratory Airway 25 Pressure Peak Inspiratory Airway 25 Pressure Peak Inspiratory Airway 25 Pressure Peak Inspiratory Airway 24 Pressure Peak Inspiratory Airway 25 Pressure Peak Inspiratory Airway 24 Pressure Peak Inspiratory Airway 24 Pressure Peak Inspiratory Airway 25 Pressure Peak Inspiratory Airway 24 Pressure Peak Inspiratory Airway 24 Pressure Results - Laboratory Findings CBC and BMP: 06/19/16 03:45 06/19/16 03:45 ABG ABG pH 7.15 pH Units (7.32-7.45) L* 06/19/16 03:45 ABG pCO2 49 mmHg (35-45) H 06/19/16 03:45 ABG pO2 94 mmHg (85-104) 06/19/16 03:45 ABG O2 Saturation 95 % (95-98) 06/19/16 03:45 PT/INR, D-dimer PT 16.6 Seconds (9.4-12.1) H 06/18/16 03:45 D-Dimer 28394 ng/mLFEU (0-500) H 06/18/16 03:45 Abnormal lab findings: Abnormal lab results WBC 13.3 K/mcL (4.3-11.1) H 06/19/16 03:45 RBC 3.73 M/mcL (3.82-4.97) L 06/19/16 03:45 Hgb 10.6 g/dL (11.5-15.4) L 06/19/16 03:45 Hct 33.4 % (35.3-44.9) L 06/19/16 03:45 RDW 14.8 % (11.5-14.5) H 06/19/16 03:45 Plt Count 39 K/mcL (140-400) L D 06/19/16 03:45 Band Neutrophils % 8.0 % (0-4) H 06/18/16 03:45 Metamyelocytes % 2.0 % (0) H 06/18/16 03:45 Neutrophils # 11.2 K/mcL (1.6-8.9) H 06/19/16 03:45 Nucleated RBCs/100 WBC 0.5 /100 WBC (0) H 06/19/16 03:45 Reactive Lymphocytes Present (Not Present) A 06/18/16 03:45 Toxic Granulation Present (Not Present) A 06/18/16 03:45 Platelet Estimate Decreased (Normal) L 06/19/16 03:45 Clumped Platelets Few (Not Present) A 06/16/16 22:56 Large Platelets Present (Not Present) A 06/19/16 03:45 Immature Plt Fraction 15.0 % (1.1-6.1) H 06/19/16 03:45 [place] Cells 1+ (Not Present) A 06/18/16 03:45 PT 16.6 Seconds (9.4-12.1) H 06/18/16 03:45 APTT 25.8 Seconds (26.0-36.0) L 06/18/16 03:45 Fibrinogen 791 mg/dL (169-393) H* 06/18/16 03:45 D-Dimer 29351 ng/mLFEU (0-500) H 06/18/16 03:45 ABG pH 7.15 pH Units (7.32-7.45) L* 06/19/16 03:45 ABG pCO2 49 mmHg (35-45) H 06/19/16 03:45 ABG HCO3 17.1 mEQ/L (21-27) L 06/19/16 03:45 ABG Total CO2 18.6 mEq/L (20-26) L 06/19/16 03:45 ABG Base Excess -11.5 mEq/L (-2.0 to 3.0) L 06/19/16 03:45 Potassium 4.9 mEq/L (3.5-4.5) H 06/19/16 03:45 Carbon Dioxide 17 mEq/L (19-29) L 06/19/16 03:45 BUN 46 mg/dL (7-20) H 06/19/16 03:45 Creatinine 2.40 mg/dL (0.57-1.11) H 06/19/16 03:45 Est GFR ( Amer) 25 (> 60) L 06/19/16 03:45 Est GFR (Non-Af Amer) 21 (> 60) L 06/19/16 03:45 Glucose 146 mg/dL (70-99) H 06/19/16 03:45 POC Glucose 116 (58-89) H 06/19/16 09:11 Hemoglobin A1c 9.4 % (-5.6) H 06/18/16 03:45 Lactic Acid 11.4 mmol/L (0.5-2.2) H* 06/18/16 03:45 Calcium 6.8 mg/dL (8.6-10.8) L 06/19/16 03:45 Ionized Calcium 0.79 mmol/L (1.15-1.35) L 06/19/16 03:45 Phosphorus 7.3 mg/dL (2.3-4.7) H 06/19/16 03:45 Total Bilirubin 4.3 mg/dL (0.2-1.2) H D 06/19/16 03:45 Direct Bilirubin 2.6 mg/dL (0.0-0.5) H 06/19/16 03:45 Indirect Bilirubin 1.7 mg/dL (0.0-1.2) H 06/19/16 03:45 AST 23698 Units/L (5-34) H 06/19/16 03:45 ALT 4799 Units/L (0-55) H 06/19/16 03:45 Alkaline Phosphatase 283 Units/L (38-126) H 06/19/16 03:45 B-Natriuretic Peptide 939 pg/mL (0-100) H 06/18/16 03:45 Serum Total Protein 5.5 g/dL (6.0-8.3) L 06/19/16 03:45 Albumin 2.2 g/dL (3.5-5.0) L 06/19/16 03:45 Albumin/Globulin Ratio 0.7 (1.1-2.2) L 06/19/16 03:45 Beta-Hydroxybutyric Acd 1.24 mmol/L (0.02-0.27) H 06/17/16 01:19 Urine Clarity Turbid (Clear) A 06/16/16 23:43 Urine Protein 100 mg/dL (Neg-Trace) H 06/16/16 23:43 Urine Glucose (UA) 500 mg/dL (Normal) H 06/16/16 23:43 Urine Ketones Trace mg/dL (Negative) H 06/16/16 23:43 Urine Blood Large (Negative) H 06/16/16 23:43 Ur Leukocyte Esterase Large (Negative) H 06/16/16 23:43 Urine Microscopic WBC TNTC per hpf (0-3) H 06/16/16 23:43 Ur Squamous Epith Cells Many per lpf (None-Few) H 06/16/16 23:43 Amorphous Sediment Moderate (Few) H 06/16/16 23:43 Urine Bacteria Many per hpf (None-Few) H 06/16/16 23:43 Enterobacteriac sp PCR DETECTED (Not Detect) A 06/16/16 23:01 E. coli (PCR) DETECTED (Not Detect) A 06/16/16 23:01 - Clinical Findings Intake & Output: Intake & Output 06/18/16 06/19/16 06/19/16 23:59 07:59 15:59 Intake Total 1108.2 / 1108.2 562 / 562 Output Total 1202 / 1202 573 / 573 0 / 0 Balance -93.8 / -93.8 -11 / -11 - VTE Documentation of Mechanical Device: Intermittent pneumatic compression device Consult Discharge Plan - Plan Referrals: Bharti Jenkins MD [Primary Care Provider] - (Web requested 06-17-16)
[2016-06-19 09:46] VITALS: BP 72/54
[2016-06-19 10:25] LABS: ABG Base Excess -14.2 mEq/L (-2.0 to 3.0); ABG HCO3 16.2 mEQ/L (21-27); ABG Oxygen Saturation 45 % (95-98); ABG PCO2 60 mmHg (35-45); Blood Gas FiO2 75 %
[2016-06-19 10:27] LABS: ABG PH 7.04 pH Units (7.32-7.45)
[2016-06-19 10:28] LABS: ABG PO2 38 mmHg (85-104)
[2016-06-19] MEDS ORDERED: Aminoglycoside Consult 1 EACH MC ONE (10:39)
--- NOTE | 2016-06-19 10:45 | Event Note ---
Date of Encounter: 06/19/16 Time of Encounter: 10:42 The patient sustained PEA arrest on 2 separate occasions. She was initially successfully resuscitated but only for a short period of time at approximately 10 AM. Patient had a subsequent PEA arrest at approximately 10:17 AM underwent ACLS resuscitation for PEA. In spite of appropriate resuscitation, there was no return of spontaneous circulation. I reviewed the situation with the spouse and he requested termination of efforts at approximately 1038. Patient was pronounced at that time by myself.
--- NOTE | 2016-06-19 10:47 | Death Note ---
Discharge Sum: Summary - Date and Time Date of admission: 06/17/16 06:00 Date of : 06/19/16 Time of : 10:38 - Summary Details: This 61-year-old female was admitted to the hospital with sepsis and subsequently developed septic shock. Etiology of sepsis was noted to be urinary infection. The patient developed bacteremia. In spite of appropriate aggressive medical measures, the patient's clinical status declined. Respiratory failure ensued necessitating intubation. Persistent shock required use of multiple pressor agents. The patient developed multisystem organ failure including acute kidney injury necessitating use of continuous renal replacement therapy, shock liver, he hematologic dysfunction. On the morning of 2917. The patient's clinical status deteriorated necessitating addition of a third pressor agent given persistent hypotension. I reviewed the situation at length with the and he continued to desire provision of aggressive medical care. In spite of addition of third pressor agent, the patient developed PEA arrest on 2 separate occasions. The initial PEA arrest was successful and that there was return of spontaneous circulation after approximately 8-10 minutes of CPR. A repeat PEA arrest ensued approximately half hour after the first event. In spite of appropriate aggressive resuscitation for 20 minutes, there was no return of spontaneous circulation. I reviewed the situation with the spouse and he requested termination of all life support measures. The patient was subsequently pronounced by myself at 10:38 AM on 06-19-16. - Additional Data Confirmation of as documented by pronouncing clinician: no pulse, no respirations Family: at bedside Attending physician: Marybel Senior MD Discharge Sum: Diag - PCOD Probable Cause of : Septic shock Discharge Sum: Prov - Provider Primary care physician: Bharti Jenkins MD Consults: 06/17/16 08:46 Consult to Critical Care [CONS] Stat Consulting Provider: [facility] [place] Reason for Consult: Severe sepsis, arrhthymia, acute respiratory failure Call Completed: Yes 06/18/16 02:06 Consult to Nutrition [CONS] Routine Comment: Consulting Provider: NUTRITION Reason for Dietary Consult: TF Start and Manage 06/18/16 07:28 Consult to Interventional Radiology [CONS] Stat Consulting Provider: Radiology Interventional Cols Reason for Consult: possible percutaneous nephrostomy. right sided hydronephrosis with obstructive stone. Call Completed: Yes 06/18/16 08:45 Consult to Nephrology [CONS] Stat Consulting Provider: Kidney & HTN Spclst FAISAL Reason for Consult: Possible Sailaja Time Notified: 08:46 Call Completed: Yes 06/18/16 09:00 Consult to Cardiology [CONS] Routine Comment: Consulting Provider: Cardiology Dora Reason for Consult: ACS with multiorgan injury in the setting of combined septic-hypovolemic and cardiogenic shock. Please evaluate and advise. Time Notified: 05:18 Call Completed: No 06/18/16 09:09 Consult to Urology [CONS] Routine Consulting Provider: Urology Dora Reason for Consult: renal stone, hydronephrosis Right Time Notified: 08:40 Call Completed: Yes
== END 2016-06-19 10:40 | disposition expired | DRG 871 ==
LOC: EMEROO 21:52 → 2ANU 21:52 → ICNU 06-17 09:00
PROVIDERS: ADMIT Internal Medicine; ATTEND Internal Medicine